=== PATIENT | male | born 1955 | race Caucasian/White ===

== ENCOUNTER 2016-07-26 08:12 | Inpatient (IN) | payer MEDICARE, OTHER ==
[~2016-07-26] VITALS: Ht 177.8 cm; Wt 77.1 kg
[2016-07-26 08:28] VITALS: BP 185/102
[2016-07-26] MEDS ORDERED: HYDROmorphone 1mg/ml Carpuject IVP ONE (08:45)
[2016-07-26] MEDS ORDERED: DiphenhydrAMINE 50mg/ml Inj IVP ONE (08:45)
--- NOTE | 2016-07-26 08:47 | Emergency Room Report ---
History of Present Illness General Chief Complaint: Abdominal Pain Source: Patient Present Illness HPI Patient present with complaints of diffuse abdominal pain He feels it initially was on the umbilical region now it has gone up into the epigastric region Reports several episodes of vomiting denies any diarrhea He does report chills denies any obvious documented fevers denies any back or flank pain Patient appears very uncomfortable upon arrival Denies any other fall or trauma denies any recent abdominal procedures and denies previous surgical procedures Allergies: Coded Allergies: No Known Allergies (Verified , 08/13/06) Patient History Past Medical History: see triage record Pertinent Family History: none Reviewed Nursing Documentation: PMH: Agreed, PSxH: Agreed Nursing Documentation-PMH Hx Cardiac Problems: No Hx Hypertension: No Hx Pacemaker: No Hx Asthma: No Hx COPD: No Hx Diabetes: No Hx Cancer: No Hx Gastrointestinal Problems: No Hx Dialysis: No Hx Neurological Problems: Yes - hiv Hx Cerebrovascular Accident: No Hx Seizures: No Review of Systems All Other Systems: negative except mentioned in HPI Physical Exam Vital Signs Date Time Temp Pulse Resp B/P Pulse Ox O2 Delivery O2 Flow Rate FiO2 07/26/16 08:07 97.9 66 18 165/110 98 Room Air Sp02 EP Interpretation: reviewed, normal General Appearance: moderate distress - Appears in acute pain Head: normocephalic, atraumatic Eyes: bilateral eye EOMI, bilateral eye PERRL ENT: hearing grossly normal, normal pharynx, TMs + canals normal, uvula midline Neck: full range of motion, supple, no meningismus, no bony tend Respiratory: lungs clear, normal breath sounds, no rhonchi, no respiratory distress, no retraction, no accessory muscle use Cardiovascular #1: normal peripheral pulses, regular rate, rhythm, no edema, no gallop, no JVD, no murmur Gastrointestinal: normal bowel sounds, non tender, soft, no organomegaly, non- distended, no guarding, no pulsatile mass, no rebound, other - Patient is tender in the epigastric area, there is a small umbilical hernia which is easily reducible Genitourinary: no CVA tenderness Musculoskeletal: normal inspection Neurologic: oriented x3, responsive, materials management supervisor III-XII nml as tested, motor strength/ tone normal, sensory intact Psychiatric: mood/affect normal Skin: normal color, no rash, warm/dry, palpation normal Lymphatic: normal inspection, no adenopathy Medical Decision Making Diagnostic Impression: Primary Impression: Intractable abdominal pain Additional Impression: SBO (small bowel obstruction) ER Course Given the patient's history examined the presentation Multiple differentials are considered Patient is complex requiring blood work and imaging study Patient's imaging study reveals evidence of enteritis was also a question of possible small bowel junction Patient require further admission initially refusing NG tube placement General surgery was consulted , Labs Test 07/26/16 08:20 07/26/16 09:25 07/26/16 12:50 White Blood Count 12.8 K/UL (4.8-10.8) Red Blood Count 5.25 M/UL (4.70-6.10) Hemoglobin 16.3 G/DL (14.2-18.0) Hematocrit 48.2 % (42.0-52.0) Mean Corpuscular Volume 92 FL (80-99) Mean Corpuscular Hemoglobin 31.1 PG (27.0-31.0) Mean Corpuscular Hemoglobin Concent 33.9 G/DL (32.0-36.0) Red Cell Distribution Width 12.8 % (11.6-14.8) Platelet Count 230 K/UL (150-450) Mean Platelet Volume 7.4 FL (6.5-10.1) Neutrophils (%) (Auto) 79.6 % (45.0-75.0) Lymphocytes (%) (Auto) 15.9 % (20.0-45.0) Monocytes (%) (Auto) 3.5 % (1.0-10.0) Eosinophils (%) (Auto) 0.4 % (0.0-3.0) Basophils (%) (Auto) 0.6 % (0.0-2.0) Prothrombin Time 10.0 SEC (9.30-11.50) Prothromb Time International Ratio 1.0 (0.9-1.1) Activated Partial Thromboplast Time 26 SEC (23-33) Sodium Level 144 mEQ/L (135-145) 145 mEQ/L (135-145) Potassium Level 4.4 mEQ/L (3.4-4.9) 4.3 mEQ/L (3.4-4.9) Chloride Level 100 mEQ/L (98-107) 103 mEQ/L (98-107) Carbon Dioxide Level 28 mEQ/L (20-30) 30 mEQ/L (20-30) Anion Gap 16 (5-15) 12 (5-15) Blood Urea Nitrogen 16 mg/dL (7-23) 15 mg/dL (7-23) Creatinine 1.1 mg/dL (0.7-1.2) 1.1 mg/dL (0.7-1.2) Estimat Glomerular Filtration Rate > 60 mL/min (>60) > 60 mL/min (>60) Glucose Level 142 mg/dL (74-106) 118 mg/dL (74-106) Calcium Level 10.4 mg/dL (8.6-10.2) 9.7 mg/dL (8.6-10.2) Total Bilirubin 0.5 mg/dL (0.0-1.2) Aspartate Amino Transf (AST/SGOT) 28 U/L (5-40) Alanine Aminotransferase (ALT/SGPT) 16 U/L (3-41) Alkaline Phosphatase 87 U/L (40-129) Total Protein 7.9 g/dL (6.6-8.7) Albumin 4.1 g/dL (3.5-5.2) Globulin 3.8 g/dL Albumin/Globulin Ratio 1.0 (1.0-2.7) Lipase 34 U/L (< 60) Urine Color Pale yellow Urine Appearance Slightly cloudy Urine pH 9 (4.5-8.0) Urine Specific [place] 1.015 (1.005-1.035) Urine Protein Negative (NEGATIVE) Urine Glucose (UA) Negative (NEGATIVE) Urine Ketones 1+ (NEGATIVE) Urine Occult Blood Negative (NEGATIVE) Urine Nitrite Negative (NEGATIVE) Urine Bilirubin Negative (NEGATIVE) Urine Urobilinogen Normal MG/DL (0.0-1.0) Urine Leukocyte Esterase Negative (NEGATIVE) EKG Diagnostic Results Rate: normal Rhythm: NSR ST Segments: no acute changes Rhythm Strip Diag. Results EP Interpretation: yes Rate: 66 Rhythm: NSR, no PVC's, no ectopy CT/MRI/US Diagnostic Results CT/MRI/US Diagnostic Results : Impression CT abdomen pelvisImpression: Suspicion of partial mechanical small bowel obstruction versus enteritis. Apparent transition probably present in the right lower quadrant within distal small bowel. 4 cm low-attenuation mass projecting off of the stomach consistent with a diverticulum of the stomach. The attenuation of this diverticulum is concerning and suggests a presence of an underlying mass such as a polyp or mural based tumor. Direct visualization with endoscopy is recommended. Cluster, densely calcified nodules at the left lung base. Nodules are present in 2010 minus the calcifications and suggests postinflammatory or postinfectious etiology. Atherosclerotic vascular disease. Trace ascites. Compression fracture deformities of L2 and L3 vertebra likely old. Umbilical hernia containing fat. Attenuation of this fat suggests inflammation. Incarceration cannot be evaluated by imaging and requires clinical correlation. Last Vital Signs Date Time Temp Pulse Resp B/P Pulse Ox O2 Delivery O2 Flow Rate FiO2 07/26/16 08:28 67 28 185/102 100 Room Air 07/26/16 08:07 97.9 Status: improved Disposition: ADMITTED INPATIENT Condition: Serious DANNY MCKEON D.O. Jul 26, 2016 08:47
[2016-07-26 08:55] LABS: BASOPHILS % (AUTO) 0.6 % (0.0-2.0); EOSINOPHILS % (AUTO) 0.4 % (0.0-3.0); LYMPHOCYTES % (AUTO) 15.9 % (20.0-45.0); MEAN CORPUSCULAR HEMOGLOBIN 31.1 PG (27.0-31.0); MEAN CORPUSCULAR HGB CONC 33.9 G/DL (32.0-36.0); MEAN CORPUSCULAR VOLUME 92 FL (80-99); MEAN PLATELET VOLUME 7.4 FL (6.5-10.1); MONOCYTES % (AUTO) 3.5 % (1.0-10.0); NEUTROPHILS % (AUTO) 79.6 % (45.0-75.0); PLATELET COUNT 230 K/UL (150-450); RED BLOOD COUNT 5.25 M/UL (4.70-6.10); RED CELL DISTRIBUTION WIDTH 12.8 % (11.6-14.8); WHITE BLOOD COUNT 12.8 K/UL (4.8-10.8)
[2016-07-26 09:10] LABS: ALANINE AMINOTRANSFERASE 16 U/L (3-41); ANION GAP 16 (5-15); ASPARTATE AMINO TRANSFERASE 28 U/L (5-40); CALCIUM 10.4 mg/dL (8.6-10.2); CARBON DIOXIDE 28 mEQ/L (20-30); CHLORIDE 100 mEQ/L (98-107); CREATININE 1.1 mg/dL (0.7-1.2); GLOMERULAR FILTRATION RATE > 60 mL/min (>60); HEMOLYSIS 29; LIPASE 34 U/L (< 60); POTASSIUM 4.4 mEQ/L (3.4-4.9); SODIUM 144 mEQ/L (135-145); TOTAL PROTEIN 7.9 g/dL (6.6-8.7)
[2016-07-26 09:17] VITALS: BP 139/77
[2016-07-26] MEDS ORDERED: TIVICAY50 MG ORAL (09:41)
[2016-07-26] MEDS ORDERED: BACTRIM DS TAB1 EAC1 ORAL (09:45)
[2016-07-26] MEDS ORDERED: NAPROXEN375 M2 ORAL (09:45)
[2016-07-26] MEDS ORDERED: DOCUSIL100 M1 ORAL (09:45)
[2016-07-26 10:05] LABS: APPEARANCE,URINE SLIGHTLY CLOUDY; KETONES,URINE 1+ (NEGATIVE); LEUKOCYTE ESTERASE ,URINE NEGATIVE (NEGATIVE); NITRITE,URINE NEGATIVE (NEGATIVE); PH,URINE 9 (4.5-8.0); PROTEIN,URINE NEGATIVE (NEGATIVE); UROBILINOGEN,URINE NORMAL MG/DL (0.0-1.0)
--- NOTE | 2016-07-26 10:37 | Diagnostic Imaging Report ---
Indication: Abdominal pain Technique: Continuous helical transaxial imaging of the abdomen and pelvis was obtained from the lung bases to the pubic symphysis during intravenous contrast administration. Coronal 2-D reformats were also obtained. Study obtained in a Siemens sensation [address] Total Dose length Product (DLP): [address] Dose Index Volume (CTDIvol): 18 mGy Comparison: CT chest 07/10/10, CT chest abdomen pelvis 04/29/10 Findings: There are densely calcified nodules clustered at the left lung base. Noncalcified nodules were noted on the previous studies in 2009 and 2010 in the same configuration and pattern but have changed in the sense that these structures are now calcified. The findings are undoubtedly postinflammatory/infectious in etiology. Calcifications are probably dystrophic in nature. Stomach is fluid-filled and distended. There are also moderately distended loops of small bowel. The findings could be due to ileus or enteritis. There is some evidence to suggest a mechanical bowel obstruction in the right lower quadrant as there are several loops of nondistended terminal ileum present. Please correlate clinically. If the findings are due to a mechanical obstruction, the obstruction may be partial given that the small bowel dilatation is not severe. There is a small amount of associated mural thickening and perienteric fluid. Trace ascites is noted. In the right upper quadrant of the abdomen there is a low-attenuation mass that appears to be associated with the antrum of the stomach. The mass is exophytic to the stomach. Considerations include an exophytic, antral mucosal diverticulum. The attenuation of this structure is slightly higher than that of the contents in the stomach suggesting there is either a mass within this diverticulum such as a polyp or other mural based mass. Highly recommend EGD for evaluation. The mass has a measurement of about 4 cm and is seen (for example on images 20-26, series 5) and also (image 20-25, series 3). None of these findings seen in 2010. Bilateral renal cysts are present. There is no adrenal mass. Pancreas is unremarkable. The gallbladder is unremarkable. There is umbilical hernia containing fat measuring approximately 4 cm. Moderate stool retention demonstrated. The L2 and L3 vertebral bodies show superior endplate compression fracture deformities, probably old. Impression: Suspicion of partial mechanical small bowel obstruction versus enteritis. Apparent transition probably present in the right lower quadrant within distal small bowel. 4 cm low-attenuation mass projecting off of the stomach consistent with a diverticulum of the stomach. The attenuation of this diverticulum is concerning and suggests a presence of an underlying mass such as a polyp or mural based tumor. Direct visualization with endoscopy is recommended. Cluster, densely calcified nodules at the left lung base. Nodules are present in 2010 minus the calcifications and suggests postinflammatory or postinfectious etiology. Atherosclerotic vascular disease. Trace ascites. Compression fracture deformities of L2 and L3 vertebra likely old. Umbilical hernia containing fat. Attenuation of this fat suggests inflammation. Incarceration cannot be evaluated by imaging and requires clinical correlation. Bilateral renal cysts The CT scanner at [facility] is accredited by the [employer] and the scans are performed using protocols designed to limit radiation exposure to as low as reasonably achievable to attain images of sufficient resolution adequate for diagnostic evaluation.
[2016-07-26 11:42] VITALS: BP 150/91
--- NOTE | 2016-07-26 12:34 | General Surgery Progress Note ---
General Surgery-Progress Note Subjective Reason for Consult abdominal pain, nausea and emesis, distention Additional Comments 24-36 hrs increasing abdominal pain all over, no localization, nl BM yesterday, nausea, emesis of bilous material and food, no fever. Similar milder episode 1 week ago. No hx prior abdominal surgery Objective Last 24 Hour Vital Signs Date Time Temp Pulse Resp B/P Pulse Ox O2 Delivery O2 Flow Rate FiO2 07/26/16 11:57 97.8 69 16 150/91 100 Room Air 07/26/16 11:42 69 16 150/91 100 Room Air 07/26/16 09:17 79 19 139/77 97 Room Air 07/26/16 09:16 97.8 07/26/16 08:28 67 28 185/102 100 Room Air 07/26/16 08:07 97.9 66 18 165/110 98 Room Air Cardiovascular: RSR Respiratory: clear Abdomen: distended - 1-2+, soft, 1 + tender Extremities: no edema Laboratory Tests Test 07/26/16 08:20 07/26/16 09:25 White Blood Count 12.8 K/UL (4.8-10.8) H Red Blood Count 5.25 M/UL (4.70-6.10) Hemoglobin 16.3 G/DL (14.2-18.0) Hematocrit 48.2 % (42.0-52.0) Mean Corpuscular Volume 92 FL (80-99) Mean Corpuscular Hemoglobin 31.1 PG (27.0-31.0) H Mean Corpuscular Hemoglobin Concent 33.9 G/DL (32.0-36.0) Red Cell Distribution Width 12.8 % (11.6-14.8) Platelet Count 230 K/UL (150-450) Mean Platelet Volume 7.4 FL (6.5-10.1) Neutrophils (%) (Auto) 79.6 % (45.0-75.0) H Lymphocytes (%) (Auto) 15.9 % (20.0-45.0) L Monocytes (%) (Auto) 3.5 % (1.0-10.0) Eosinophils (%) (Auto) 0.4 % (0.0-3.0) Basophils (%) (Auto) 0.6 % (0.0-2.0) Prothrombin Time 10.0 SEC (9.30-11.50) Prothromb Time International Ratio 1.0 (0.9-1.1) Activated Partial Thromboplast Time 26 SEC (23-33) Sodium Level 144 mEQ/L (135-145) Potassium Level 4.4 mEQ/L (3.4-4.9) Chloride Level 100 mEQ/L (98-107) Carbon Dioxide Level 28 mEQ/L (20-30) Anion Gap 16 (5-15) H Blood Urea Nitrogen 16 mg/dL (7-23) Creatinine 1.1 mg/dL (0.7-1.2) Estimat Glomerular Filtration Rate > 60 mL/min (>60) Glucose Level 142 mg/dL (74-106) H Calcium Level 10.4 mg/dL (8.6-10.2) H Total Bilirubin 0.5 mg/dL (0.0-1.2) Aspartate Amino Transf (AST/SGOT) 28 U/L (5-40) Alanine Aminotransferase (ALT/SGPT) 16 U/L (3-41) Alkaline Phosphatase 87 U/L (40-129) Total Protein 7.9 g/dL (6.6-8.7) Albumin 4.1 g/dL (3.5-5.2) Globulin 3.8 g/dL Albumin/Globulin Ratio 1.0 (1.0-2.7) Lipase 34 U/L (< 60) Urine Color Pale yellow Urine Appearance Slightly cloudy Urine pH 9 (4.5-8.0) Urine Specific [place] 1.015 (1.005-1.035) Urine Protein Negative (NEGATIVE) Urine Glucose (UA) Negative (NEGATIVE) Urine Ketones 1+ (NEGATIVE) H Urine Occult Blood Negative (NEGATIVE) Urine Nitrite Negative (NEGATIVE) Urine Bilirubin Negative (NEGATIVE) Urine Urobilinogen Normal MG/DL (0.0-1.0) Urine Leukocyte Esterase Negative (NEGATIVE) Imaging CAT scan: Distended stomach and multiple loops of small bowel to distal ileum, ileus vs SBO. No obvious masses. Reducible umbilical hernia , no incarceration on CT . Additional Comments Ileus secondary to viral syndrome, other GI infection vs early SBO, ? cause, r/ o Meckel's diverticulitis, mass, etc Assessment Additional Comments NG tube, hydration repeat abdominal xrays and exam. ANISA JIN Jul 26, 2016 12:34
[2016-07-26 12:50] VITALS: BP 163/118
--- NOTE | 2016-07-26 13:33 | History and Physical ---
History of Present Illness General Date patient seen: Jul 26, 2016 Time patient seen: 13:00 Reason for Hospitalization: Abdominal Pain Present Illness HPI 61 y/old male presented with complaints of diffuse abdominal pain Initially was in the umbilical region but later moved up into the epigastric region normal BM yesterday, +nausea, + emesis of bilious material and food, denies diarrhea no hematemesis no fevera, no chills . Similar milder episode 1 week ago. No hx prior abdominal surgery Workup n ED revealed mild leukocytosis, no anemia VS with evidence of HTN urgency patient was admitted fro further management CT A/P with Suspicion of partial mechanical small bowel obstruction versus enteritis. Allergies: Coded Allergies: No Known Allergies (Verified , 08/13/06) Medication History Scheduled Docusate Sodium* (Docusil*), Unknown Dose ORAL DAILY, (Reported) Dolutegravir Sodium (Tivicay), Unknown Dose ORAL DAILY, (Reported) Naproxen* (Naproxen*), Unknown Dose ORAL TWICE A DAY, (Reported) Trimethoprim/Sulfamethoxazole 160/800* (Bactrim Ds Tablet*), Unknown Dose ORAL DAILY, (Reported) Patient History History Provided By: Patient Healthcare decision maker Resuscitation status Advanced Directive on File No Past Medical/Surgical History Past Medical/Surgical History: (1) HIV (human immunodeficiency virus infection) (2) Anemia (3) GERD (gastroesophageal reflux disease) (4) HTN (hypertension) (5) Meningitis (6) HIV (human immunodeficiency virus infection) Review of Systems Constitutional: Reports: weakness Eye: Reports: nose congestion ENT: Reports: no symptoms Respiratory: Reports: no symptoms Cardiovascular: Reports: other - HTN Gastrointestinal: Reports: see HPI Genitourinary: Reports: no symptoms Musculoskeletal: Reports: back pain, joint pain, muscle pain Skin: Reports: no symptoms Psychiatric: Reports: no symptoms Neurological: Reports: no symptoms Endocrine: Reports: no symptoms Hematologic/Lymphatic: Reports: anemia, other - HIV sttaus Physical Exam General Appearance: no apparent distress, alert Lines, tubes and drains: peripheral HEENT: anicteric Neck: non-tender, supple, normal inspection Respiratory/Chest: chest wall non-tender, no respiratory distress, no accessory muscle use Cardiovascular/Chest: normal peripheral pulses, normal rate, regular rhythm, no JVD Abdomen: soft, other - epigastric tenderness, small ventral hernia, easily reducible Extremities: normal range of motion, non-tender, no calf tenderness, normal capillary refill Skin Exam: warm/dry Neurologic: no motor/sensory deficits, alert, oriented x 3, responsive Musculoskeletal: normal muscle bulk Last 24 Hour Vital Signs Date Time Temp Pulse Resp B/P Pulse Ox O2 Delivery O2 Flow Rate FiO2 07/26/16 12:50 97.2 72 16 163/118 99 Room Air 07/26/16 11:57 97.8 69 16 150/91 100 Room Air 07/26/16 11:42 69 16 150/91 100 Room Air 07/26/16 09:17 79 19 139/77 97 Room Air 07/26/16 09:16 97.8 07/26/16 08:28 67 28 185/102 100 Room Air 07/26/16 08:07 97.9 66 18 165/110 98 Room Air Laboratory Tests Test 07/26/16 08:20 07/26/16 09:25 07/26/16 12:50 White Blood Count 12.8 K/UL (4.8-10.8) H Red Blood Count 5.25 M/UL (4.70-6.10) Hemoglobin 16.3 G/DL (14.2-18.0) Hematocrit 48.2 % (42.0-52.0) Mean Corpuscular Volume 92 FL (80-99) Mean Corpuscular Hemoglobin 31.1 PG (27.0-31.0) H Mean Corpuscular Hemoglobin Concent 33.9 G/DL (32.0-36.0) Red Cell Distribution Width 12.8 % (11.6-14.8) Platelet Count 230 K/UL (150-450) Mean Platelet Volume 7.4 FL (6.5-10.1) Neutrophils (%) (Auto) 79.6 % (45.0-75.0) H Lymphocytes (%) (Auto) 15.9 % (20.0-45.0) L Monocytes (%) (Auto) 3.5 % (1.0-10.0) Eosinophils (%) (Auto) 0.4 % (0.0-3.0) Basophils (%) (Auto) 0.6 % (0.0-2.0) Prothrombin Time 10.0 SEC (9.30-11.50) Prothromb Time International Ratio 1.0 (0.9-1.1) Activated Partial Thromboplast Time 26 SEC (23-33) Sodium Level 144 mEQ/L (135-145) Pending Potassium Level 4.4 mEQ/L (3.4-4.9) Pending Chloride Level 100 mEQ/L (98-107) Pending Carbon Dioxide Level 28 mEQ/L (20-30) Pending Anion Gap 16 (5-15) H Blood Urea Nitrogen 16 mg/dL (7-23) Pending Creatinine 1.1 mg/dL (0.7-1.2) Pending Estimat Glomerular Filtration Rate > 60 mL/min (>60) Pending Glucose Level 142 mg/dL (74-106) H Pending Calcium Level 10.4 mg/dL (8.6-10.2) H Pending Total Bilirubin 0.5 mg/dL (0.0-1.2) Aspartate Amino Transf (AST/SGOT) 28 U/L (5-40) Alanine Aminotransferase (ALT/SGPT) 16 U/L (3-41) Alkaline Phosphatase 87 U/L (40-129) Total Protein 7.9 g/dL (6.6-8.7) Albumin 4.1 g/dL (3.5-5.2) Globulin 3.8 g/dL Albumin/Globulin Ratio 1.0 (1.0-2.7) Lipase 34 U/L (< 60) Urine Color Pale yellow Urine Appearance Slightly cloudy Urine pH 9 (4.5-8.0) Urine Specific [place] 1.015 (1.005-1.035) Urine Protein Negative (NEGATIVE) Urine Glucose (UA) Negative (NEGATIVE) Urine Ketones 1+ (NEGATIVE) H Urine Occult Blood Negative (NEGATIVE) Urine Nitrite Negative (NEGATIVE) Urine Bilirubin Negative (NEGATIVE) Urine Urobilinogen Normal MG/DL (0.0-1.0) Urine Leukocyte Esterase Negative (NEGATIVE) Height (Feet): 5 Height (Inches): 10.00 Weight (Pounds): 160 Medications Current Medications Medications (Trade) Dose Ordered Sig/Sam Route PRN Reason Start Time Stop Time Status Last Admin Dose Admin Dextrose/Sodium Chloride (D5 0.45% NS) 1,000 ml @ 100 mls/hr Q10H IV 07/26/16 13:30 08/25/16 13:29 Heparin Sodium (Porcine) (Heparin 5000 units/ml) 5,000 units EVERY 12 HOURS SUBQ 07/26/16 21:00 08/25/16 20:59 Morphine Sulfate (Morphine Sulfate) 2 mg Q4H PRN IV PAIN 4-10 07/26/16 13:00 08/02/16 12:59 Ondansetron HCl (Zofran) 4 mg Q6H PRN IVP Nausea & Vomiting 07/26/16 13:00 08/25/16 12:59 Assessment/Plan Assessment/Plan ASSESSMENT partial SBO vs enteritis HTN urgency HIV status anemia GERD PLAN OF CARE NPO IVF surgery consult bowel decompression antiemetic prn BP management T cell subsets DVT, GI prophylaxis Pain management monitor HH, transfuse prn case discussed and evaluated by supervising physician Bri Adames NP ([place]) Jul 26, 2016 13:33
[2016-07-26 13:34] LABS: ANION GAP 12 (5-15); CALCIUM 9.7 mg/dL (8.6-10.2); CARBON DIOXIDE 30 mEQ/L (20-30); CHLORIDE 103 mEQ/L (98-107); CREATININE 1.1 mg/dL (0.7-1.2); GLOMERULAR FILTRATION RATE > 60 mL/min (>60); HEMOLYSIS 4; POTASSIUM 4.3 mEQ/L (3.4-4.9); SODIUM 145 mEQ/L (135-145)
[2016-07-26] MEDS: D5 1/2NS 1,000 ML IV SCH ×2 (14:32→22:57)
[2016-07-26] MEDS: Morphine Sulfate 2mg/ml Inj IV PRN ×2 (14:34→19:27)
[2016-07-26 16:27] VITALS: BP 157/102
[2016-07-26 20:00] VITALS: BP 163/122
[2016-07-26] MEDS ORDERED: D5 1/2NS 1000ml IV ONE (20:45)
[2016-07-26] MEDS: Heparin 5000 units/ml inj SUBQ SCH (21:29)
[2016-07-27] VITALS: BP 148/79
[2016-07-27] MEDS: Morphine Sulfate 2mg/ml Inj IV PRN ×4 (02:55→19:34)
[2016-07-27 04:00] VITALS: BP 140/94
[2016-07-27 07:23] LABS: BASOPHILS % (AUTO) 0.9 % (0.0-2.0); LYMPHOCYTES % (AUTO) 26.5 % (20.0-45.0); MEAN CORPUSCULAR HEMOGLOBIN 30.8 PG (27.0-31.0); MEAN CORPUSCULAR HGB CONC 32.8 G/DL (32.0-36.0); MEAN CORPUSCULAR VOLUME 94 FL (80-99); MEAN PLATELET VOLUME 7.7 FL (6.5-10.1); MONOCYTES % (AUTO) 9.6 % (1.0-10.0); NEUTROPHILS % (AUTO) 61.1 % (45.0-75.0); PLATELET COUNT 202 K/UL (150-450); RED BLOOD COUNT 4.52 M/UL (4.70-6.10); WHITE BLOOD COUNT 6.7 K/UL (4.8-10.8)
[2016-07-27 08:03] LABS: ALBUMIN/GLOBULIN RATIO 1.1 (1.0-2.7); CALCIUM 9.6 mg/dL (8.6-10.2); CREATININE 1.3 mg/dL (0.7-1.2); GLOMERULAR FILTRATION RATE 55.9 mL/min (>60); POTASSIUM 4.5 mEQ/L (3.4-4.9); TOTAL PROTEIN 6.9 g/dL (6.6-8.7)
[2016-07-27] MEDS: Heparin 5000 units/ml inj SUBQ SCH ×2 (08:30→21:00)
[2016-07-27] MEDS: D5 1/2NS 1,000 ML IV SCH ×2 (08:31→19:33)
[2016-07-27 08:42] VITALS: BP 149/102
--- NOTE | 2016-07-27 11:22 | Consultation ---
Consult Note Consult Note ID CONSULT: Mare# [id number] Assessment/Plan ASSESSMENT: 61 y/o male with: // HIV / AIDS, on cART ( [facility] ) - CD4 >400, VL undetectable per self report // Leukocytosis, mild - resolved, afebrile // Partial SBO vs vs ileus vs enteritis - surgery following - CT A/P: moderately distended loops of small bowel. The findings could be due to ileus or enteritis. There is some evidence to suggest a mechanical bowel obstruction in the right lower quadrant as there are several loops of nondistended terminal ileum present. // Stomach lesion r/o malignancy - CT A/P: low-attenuation mass that appears to be associated with the antrum of the stomach. The mass is exophytic to the stomach. // MAYELA - Cr 1.1-->1.3 // h/o cryptococcal meningitis/cryptococcemia, rickettsia, HBV ( spontaneous clearance ), syphillis SP Rx // Negative: toxoplasma, histoplasma, cryptosporidium // NKDA // Full Code PLAN: - monitor pt off of ABX - resume cART, bactrim when taking PO, f/u regular HIV provider at discharge - surgery following - consider GI eval for EGD visualize stomach lesion - monitor CBC, temperatures, [place]-culture if acute change - monitor BMP Thanks! Will follow TISHA CURTIS Jul 27, 2016 11:22
[2016-07-27 11:57] VITALS: BP 131/86
--- NOTE | 2016-07-27 12:18 | General Progress Note ---
Progress Note Progress Note Afebrile, less pain, NG 800 cc sl bilous and some coffee ground. Abdomen: soft, BS normal, less distention, less tender ( mostly upper abdomen), no RLQ mass or significant tenderness WBC 6.700, Xrays: pending this am. Impression: abdominal pain, N/V, tenderness, leukocytosis and initial picture of SBO. Will check today's xrays and order UGI with with SBFT for tomorrow am. Continue NG for now. ANISA JIN Jul 27, 2016 12:18
--- NOTE | 2016-07-27 16:24 | Pulmonology Progress Note ---
Assessment/Plan Assessment/Plan ASSESSMENT partial SBO vs enteritis stomach lesion, r/o malignancy HTN urgency HIV status anemia GERD acute kidney injury PLAN OF CARE NPO bowel decompression with NGT to suction - -800 cc bilious some coffee ground material n IVF surgery follows KUB today CT A/P also with evidence of stomach mass get GI eval for EGD for evaluation of mass antiemetic prn BP management T cell subsets DVT, GI prophylaxis Pain management monitor HH, transfuse prn monitor renal parameters, lytes case discussed and evaluated by supervising physician ' Subjective Allergies: Coded Allergies: No Known Allergies (Verified , 08/13/06) Subjective afebrile, leukocytosis resolved complained of epigastric pain seen by surgery and ID full report of CT available with evidence of stomach lesion Objective Last 24 Hour Vital Signs Date Time Temp Pulse Resp B/P Pulse Ox O2 Delivery O2 Flow Rate FiO2 07/27/16 14:11 156/101 07/27/16 11:57 98.6 76 15 131/86 96 Room Air 07/27/16 08:42 97.2 77 18 149/102 92 Room Air 07/27/16 06:19 140/94 07/27/16 04:00 96.4 76 18 140/94 100 Room Air 07/27/16 00:00 97.0 82 19 148/79 97 Room Air 07/26/16 21:28 157/99 07/26/16 20:00 97.3 84 18 163/122 96 Room Air 07/26/16 18:05 157/102 07/26/16 16:27 97.7 85 14 157/102 96 Intake and Output 07/26/16 07/27/16 19:00 07:00 Intake Total 1000 ml 1100 ml Output Total 125 ml 1200 ml Balance 875 ml -100 ml Intake Oral 0 ml IV Total 1000 ml 1100 ml Output Urine Total 125 ml 400 ml Other 800 ml Objective General Appearance: no apparent distress, awake, alert Lines, tubes and drains: peripheral HEENT: anicteric, NGT to suction Neck: non-tender, supple, normal inspection Respiratory/Chest: chest wall non-tender, no respiratory distress, no accessory muscle use Cardiovascular/Chest: normal peripheral pulses, normal rate, regular rhythm, no JVD Abdomen: soft, other - epigastric tenderness, small ventral hernia, easily reducible Extremities: normal range of motion, non-tender, no calf tenderness, normal capillary refill Skin Exam: warm/dry Neurologic: no motor/sensory deficits, alert, oriented x 3, responsive Musculoskeletal: normal muscle bulk Laboratory Tests 07/26/16 17:00: White Blood Count [Pending], Lymphocytes [Pending], Percent CD3 Cells [Pending] , Absolute CD3 Count [Pending], Percent CD4 Cells [Pending], Absolute CD4 Count [Pending], T-Lymphocyte CD4/CD8 Ratio [Pending], Percent CD8 Cells [Pending], Absolute CD8 Count [Pending] 07/27/16 05:40: White Blood Count 6.7, Red Blood Count 4.52L, Hemoglobin 13.9L, Hematocrit 42.5 , Mean Corpuscular Volume 94, Mean Corpuscular Hemoglobin 30.8, Mean Corpuscular Hemoglobin Concent 32.8, Red Cell Distribution Width 13.0, Platelet Count 202, Mean Platelet Volume 7.7, Neutrophils (%) (Auto) 61.1, Lymphocytes (% ) (Auto) 26.5, Monocytes (%) (Auto) 9.6, Eosinophils (%) (Auto) 2.0, Basophils ( %) (Auto) 0.9, Sodium Level 144, Potassium Level 4.5, Chloride Level 103, Carbon Dioxide Level 31H, Anion Gap 10, Blood Urea Nitrogen 16, Creatinine 1.3H , Estimat Glomerular Filtration Rate 55.9, Glucose Level 114H, Calcium Level 9.6 , Total Bilirubin 0.3, Aspartate Amino Transf (AST/SGOT) 21, Alanine Aminotransferase (ALT/SGPT) 12, Alkaline Phosphatase 76, Total Protein 6.9, Albumin 3.7, Globulin 3.2, Albumin/Globulin Ratio 1.1 Current Medications Medications (Trade) Dose Ordered Sig/Sam Route PRN Reason Start Time Stop Time Status Last Admin Dose Admin Clonidine HCl (Catapres) 0.1 mg EVERY 8 HOURS ORAL 07/26/16 16:00 08/25/16 15:59 07/27/16 14:11 Dextrose/Sodium Chloride (D5 0.45% NS) 1,000 ml @ 100 mls/hr Q10H IV 07/26/16 13:30 08/25/16 13:29 07/27/16 08:31 Heparin Sodium (Porcine) (Heparin 5000 units/ml) 5,000 units EVERY 12 HOURS SUBQ 07/26/16 21:00 08/25/16 20:59 07/27/16 08:30 Hydralazine HCl (Apresoline) 10 mg Q4H PRN IV For High Blood Pressure 07/26/16 23:15 08/25/16 23:14 Morphine Sulfate (Morphine Sulfate) 2 mg Q4H PRN IV PAIN 4-10 07/26/16 13:00 08/02/16 12:59 07/27/16 14:12 Ondansetron HCl (Zofran) 4 mg Q6H PRN IVP Nausea & Vomiting 07/26/16 13:00 08/25/16 12:59 07/26/16 14:35 Pneumococcal Polyvalent Vaccine (Pneumovax) 0.5 ml ONCE ONCE IM 07/27/16 17:30 07/27/16 17:31 Ranitidine HCl (Zantac) 150 mg BEDTIME ORAL 07/26/16 21:00 08/25/16 20:59 07/26/16 21:27 Keith CedenoMisericordia HospitalBri Desai NP Jul 27, 2016 16:24
[2016-07-27 16:35] VITALS: BP 136/89
[2016-07-27] MEDS ORDERED: Pneumococcal Vaccine 25mcg/0.5ml IM ONE (17:30)
[2016-07-27 20:00] VITALS: BP 134/94
--- NOTE | 2016-07-27 21:58 | Consultation ---
DATE OF CONSULTATION: 07/27/2016 INFECTIOUS DISEASE CONSULTATION REQUESTING PHYSICIAN: Jasmina Diego M.D. REASON FOR CONSULTATION: Human immunodeficiency virus. HISTORY OF PRESENT ILLNESS: This is a 61-year-old male with a history of HIV/AIDS with a CD4 count of more than 400 and virologically undetectable on combination intractable bowel therapy admitted on 07/26/2016 with abdominal [address]. A [address] of the abdomen and pelvis shows moderately distended loops of small bowel that may be due to ileus or enteritis and possible partial obstruction. Also, noted low attenuation mass that appears to be associated with the antrum of the stomach, this is exophytic. Associated mild leukocytosis, now resolved and afebrile as well as acute renal insufficiency. The patient has been seen by surgery and is being managed conservatively with nasogastric tube to low intermittent suction. No cultures have been sent and he is not receiving any antimicrobial therapy. ID now consulted to assist in management. PAST MEDICAL HISTORY: HIV/AIDS, on Descovy and Tivicay with a CD4 count of more than 400 and virologically undetectable per self report. PAST SURGICAL HISTORY: None. FAMILY HISTORY: Mother and sister both of cancer. SOCIAL HISTORY: Denies tobacco, alcohol, or illicit drug abuse. ALLERGIES: No known drug allergies. MEDICATIONS: 1. No antibiotics. 2. Subcutaneous heparin. 3. Zantac. 4. Clonidine. REVIEW OF SYSTEMS: As per history of present illness. Ten systems reviewed, all pertinent positives and negatives noted. PHYSICAL EXAMINATION: VITAL SIGNS: Maximum temperature 97.8, blood pressure 149/102, heart rate 77, respiratory rate 18, and saturating 92% on room air. GENERAL: No apparent distress. Nontoxic appearing. CARDIOVASCULAR: Regular rate and rhythm. No murmurs. PULMONARY: Clear to auscultation bilaterally. ABDOMINAL EXAM: Bowel sounds present. Soft. Mild distention and epigastric tenderness. EXTREMITIES: No edema. SKIN EXAM: No rash. LABORATORY DATA: White blood cell count 6.7, decreased from 12.8, hemoglobin 13.9, and platelets 202,000. Sodium 141, potassium 4.5, chloride 103, bicarbonate 31, BUN 16, and creatinine 1.3, increased from 1.1. The lipase and liver function tests within normal limits. Urinalysis negative. CD4 count pending. MICROBIOLOGY: None. IMAGIN07/26/2016 CT abdomen and pelvis with moderately distended loops of small bowel may be ileus enteritis or partial small-bowel obstruction. Low-attenuation mass that appears to be associated with the antrum of the stomach and is exophytic. Please refer to full report for full details. ASSESSMENT: 1. Human immunodeficiency virus/acquired immune deficiency syndrome, on combination antiretroviral therapy with Descovy and Tivicay and a CD4 count of more than 400 and virologically undetectable per self report. 2. Leukocytosis, mild now resolved and afebrile. 3. Partial small-bowel obstruction versus enteritis versus ileus, surgery is following. 4. Stomach lesion rule out malignancy. CT as above. 5. Acute renal insufficiency. 6. History of cryptococcal meningitis/cryptococcoma status post treatment. 7. History of hepatitis B with spontaneous clearance. 8. History of syphilis status post treatment. 9. No known drug allergies. 10. Full Code. PLAN: 1. Monitor patient off of antibiotics. 2. Resume combination of antiretroviral therapy and Bactrim prophylaxis while taking oral medications and follow up with regular HIV provider at discharge. 3. Surgery is following. 4. Consider GI evaluation for esophagogastroduodenoscopy to visualize stomach lesion. 5. Monitor CBC and temperatures and angeles culture for acute change. 6. Monitor BMP. Thank you. We will follow. Pelon Adame M.D. DR: SRUTHI JOB#: [id number] CC: Jasmina Diego M.D.; Fax#: [phone] Orona
[2016-07-28] VITALS: BP 138/78
[2016-07-28] MEDS: Morphine Sulfate 2mg/ml Inj IV PRN ×4 (00:10→14:37)
--- NOTE | 2016-07-28 00:48 | Consultation ---
DATE OF CONSULTATION: 07/26/2016 SURGICAL CONSULTATION CONSULTING PHYSICIAN: Sae Bailey M.D. ATTENDING PHYSICIAN: Jasmina Diego M.D. PERTINENT HISTORY: The patient is a 61-year-old male, who came to the emergency room with complaints of diffuse abdominal pain, initially in the umbilical region, but moved into the epigastric region the day prior to admission, became more diffuse, with associated nausea and vomiting. He had a milder episode one week ago, which resolved spontaneously. He denies any diarrhea, no changing in stool habits, no narrowing of stool, and had a normal bowel movement the day prior to admission. PAST MEDICAL HISTORY: Pertinent for human immunodeficiency virus infection, history of anemia in the past, history of gastric esophageal reflux, history of hypertension, and history of meningitis many years ago. MEDICATIONS: He takes Naprosyn, Bactrim, Tivicay, docusate sodium, and Naprosyn p.r.n. ALLERGIES: None known. REVIEW OF SYSTEMS: HEENT: No headaches, tinnitus, or dysphagia. Cardiopulmonary: No history of chest pain, shortness of breath, cough, or sputum. Genitourinary: No history of dysuria, hematuria, or obstructive symptoms. Gastrointestinal: As above. PHYSICAL EXAMINATION: VITAL SIGNS: Blood pressure is 146/78, pulse is 76, respirations 16, and temperature is 97.8 degrees. GENERAL: A well-developed and well-nourished, middle-aged, male, in no distress, uncomfortable with a nasogastric tube in place, and some abdominal pain. HEENT: Normal. No scleral icterus. The mouth and throat are clear. The mucosa is slightly dehydrated. NECK: Supple. No masses. LUNGS: Clear. HEART: Rhythmic and regular. ABDOMEN: The abdomen is 3+, soft, distention with a small reducible umbilical hernia in the upper aspect of the umbilicus, some tenderness throughout the abdomen most pronounced in the upper epigastric region, no localized right lower quadrant tenderness, no masses. No groin adenopathy or groin hernias. EXTREMITIES: Good range of motion. GENITALIA: Normal genitalia. RECTAL: Normal tone. No masses. HEMATOLOGIC: Negative stool. LABORATORY VALUES: White blood count 12,800, hemoglobin 16.3, and hematocrit 48.2. Electrolytes, sodium 144, potassium 4.4, chloride 100, CO2 28, BUN 16, and creatinine 1.1. Urinalysis is normal. Abdominal CAT scan revealed multiple dilated small-bowel loops and fluid-filled stomach, also distended, and possible partial mechanical small bowel obstruction versus enteritis. There appears to be some transition in the right lower quadrant in the distal small bowel. There also appears to be a 4 cm low attenuation mass projecting off of the stomach consistent with a diverticulum of the stomach. There is no obvious mass. IMPRESSION: Abdominal pain, nausea, vomiting, and abdominal distention, possible early small bowel obstruction versus some kind of ileus, most likely from a viral syndrome. Other causes may be hidden Meckel's diverticulitis, mass in the ileocecal valve region, which has not been detected. PLAN: The patient has a nasogastric tube in place, intravenous hydration, and repeat abdominal x-rays have been ordered for tomorrow morning. We will follow the patient closely. If no answer in the next 24 hours or so, we will do an upper gastrointestinal series with small-bowel follow-through for further evaluation. Sae Bailey M.D. DR: JEROD JOB#: [id number] CC:
[2016-07-28 04:00] VITALS: BP 112/74
[2016-07-28] MEDS: D5 1/2NS 1,000 ML IV SCH ×3 (04:39→21:09)
[2016-07-28 07:14] LABS: BASOPHILS % (AUTO) 0.8 % (0.0-2.0); EOSINOPHILS % (AUTO) 2.7 % (0.0-3.0); LYMPHOCYTES % (AUTO) 23.6 % (20.0-45.0); MEAN CORPUSCULAR HEMOGLOBIN 30.5 PG (27.0-31.0); MEAN CORPUSCULAR HGB CONC 32.8 G/DL (32.0-36.0); MEAN CORPUSCULAR VOLUME 93 FL (80-99); MEAN PLATELET VOLUME 7.3 FL (6.5-10.1); PLATELET COUNT 168 K/UL (150-450); RED BLOOD COUNT 4.15 M/UL (4.70-6.10); RED CELL DISTRIBUTION WIDTH 12.7 % (11.6-14.8)
[2016-07-28 07:33] LABS: ANION GAP 12 (5-15); CALCIUM 8.6 mg/dL (8.6-10.2); CARBON DIOXIDE 28 mEQ/L (20-30); CHLORIDE 100 mEQ/L (98-107); CREATININE 1.2 mg/dL (0.7-1.2); GLOMERULAR FILTRATION RATE > 60 mL/min (>60); HEMOLYSIS 16; POTASSIUM 4.1 mEQ/L (3.4-4.9); SODIUM 140 mEQ/L (135-145)
[2016-07-28 08:15] VITALS: BP_SYST 143; BP_SYST 157; BP_DIAS 100; BP_DIAS 83
[2016-07-28] MEDS: Heparin 5000 units/ml inj SUBQ SCH ×2 (09:00→20:04)
--- NOTE | 2016-07-28 10:03 | Diagnostic Imaging Report ---
Indication: Abdominal distention Technique: Supine and upright views of the abdomen Comparison: 07/26/2016 Findings: Nasogastric tube is coiled within the gastric fundus. There are borderline dilated small bowel loops throughout the abdomen. Gas and stool are seen within the colon. Small bowel distention appears minimally improved since prior exam. Contrast is seen within the bladder on recent CT scan. L2 and L3 compression fracture deformities are again demonstrated Impression: Minimally improved small bowel distention, over one day. As previously discussed on prior CT scan, findings may represent partial small bowel obstruction or enteritis Stable satisfactory position of nasogastric tube
--- NOTE | 2016-07-28 10:17 | Infectious Diseases Prog Note ---
Assessment/Plan Assessment/Plan ASSESSMENT: 61 y/o male with: // HIV / AIDS, on cART ( [facility] ) - CD4 >400, VL undetectable per self report // Leukocytosis, mild - resolved, afebrile // Partial SBO vs vs ileus vs enteritis - surgery following, dec NGT output - CT A/P: moderately distended loops of small bowel. The findings could be due to ileus or enteritis. There is some evidence to suggest a mechanical bowel obstruction in the right lower quadrant as there are several loops of nondistended terminal ileum present. // Stomach lesion r/o malignancy - GI eval pending - CT A/P: low-attenuation mass that appears to be associated with the antrum of the stomach. The mass is exophytic to the stomach. // MAYELA - Cr 1.1-->1.3-->1.2 // h/o cryptococcal meningitis/cryptococcemia, rickettsia, HBV ( spontaneous clearance ), syphillis SP Rx // Negative: toxoplasma, histoplasma, cryptosporidium // NKDA // Full Code PLAN: - monitor pt off of ABX - resume cART, bactrim when taking PO, f/u regular HIV provider at discharge - surgery following - NGT to LIS - GI eval for EGD visualize stomach lesion - monitor CBC, temperatures, angeles-culture if acute change - monitor BMP Subjective Allergies: Coded Allergies: No Known Allergies (Verified , 08/13/06) Subjective remains afebrile. dec NGT output abdo pain Objective Vital Signs Last 24 Hour Vital Signs Date Time Temp Pulse Resp B/P Pulse Ox O2 Delivery O2 Flow Rate FiO2 07/28/16 08:15 98.1 80 21 143/100 97 Room Air 07/28/16 06:00 112/74 07/28/16 04:00 97.2 68 19 112/74 96 Room Air 07/28/16 00:00 97.3 73 18 138/78 98 Room Air 07/27/16 22:27 134/94 07/27/16 20:04 96.8 07/27/16 20:00 96.8 78 19 134/94 97 Room Air 07/27/16 16:35 97.0 76 16 136/89 96 Room Air 07/27/16 14:11 156/101 07/27/16 11:57 98.6 76 15 131/86 96 Room Air Height (Feet): 5 Height (Inches): 5.00 Weight (Pounds): 170 General Appearance: no acute distress HEENT: other - NGT Respiratory/Chest: no respiratory distress Cardiovascular: normal rate, regular rhythm Abdomen: normal bowel sounds, distended, tender Microbiology Date/Time Source Procedure Growth Status 07/26/16 11:00 Nasal Nares MRSA Culture - Final NO METHICILLIN RESISTANT STAPH AUREUS... Complete 07/26/16 11:00 Rectum VRE Culture - Final NO VANCOMYCIN RESISTANT ENTEROCOCCUS ... Complete Laboratory Tests Test 07/28/16 05:35 White Blood Count 5.0 K/UL (4.8-10.8) Red Blood Count 4.15 M/UL (4.70-6.10) L Hemoglobin 12.7 G/DL (14.2-18.0) L Hematocrit 38.6 % (42.0-52.0) L Mean Corpuscular Volume 93 FL (80-99) Mean Corpuscular Hemoglobin 30.5 PG (27.0-31.0) Mean Corpuscular Hemoglobin Concent 32.8 G/DL (32.0-36.0) Red Cell Distribution Width 12.7 % (11.6-14.8) Platelet Count 168 K/UL (150-450) Mean Platelet Volume 7.3 FL (6.5-10.1) Neutrophils (%) (Auto) 62.0 % (45.0-75.0) Lymphocytes (%) (Auto) 23.6 % (20.0-45.0) Monocytes (%) (Auto) 11.0 % (1.0-10.0) H Eosinophils (%) (Auto) 2.7 % (0.0-3.0) Basophils (%) (Auto) 0.8 % (0.0-2.0) Sodium Level 140 mEQ/L (135-145) Potassium Level 4.1 mEQ/L (3.4-4.9) Chloride Level 100 mEQ/L (98-107) Carbon Dioxide Level 28 mEQ/L (20-30) Anion Gap 12 (5-15) Blood Urea Nitrogen 15 mg/dL (7-23) Creatinine 1.2 mg/dL (0.7-1.2) Estimat Glomerular Filtration Rate > 60 mL/min (>60) Glucose Level 95 mg/dL (74-106) Calcium Level 8.6 mg/dL (8.6-10.2) Current Medications Medications (Trade) Dose Ordered Sig/Sam Route PRN Reason Start Time Stop Time Status Last Admin Dose Admin Clonidine HCl (Catapres) 0.1 mg EVERY 8 HOURS ORAL 07/26/16 16:00 08/25/16 15:59 07/27/16 22:27 Dextrose/Sodium Chloride (D5 0.45% NS) 1,000 ml @ 100 mls/hr Q10H IV 07/26/16 13:30 08/25/16 13:29 07/28/16 04:39 Heparin Sodium (Porcine) (Heparin 5000 units/ml) 5,000 units EVERY 12 HOURS SUBQ 07/26/16 21:00 08/25/16 20:59 07/27/16 08:30 Hydralazine HCl (Apresoline) 10 mg Q4H PRN IV For High Blood Pressure 07/26/16 23:15 08/25/16 23:14 Morphine Sulfate (Morphine Sulfate) 2 mg Q4H PRN IV PAIN 4-10 07/26/16 13:00 08/02/16 12:59 07/28/16 09:15 Ondansetron HCl (Zofran) 4 mg Q6H PRN IVP Nausea & Vomiting 07/26/16 13:00 08/25/16 12:59 07/26/16 14:35 Ranitidine HCl (Zantac) 150 mg BEDTIME ORAL 07/26/16 21:00 08/25/16 20:59 07/27/16 22:26 TISHA CURTIS 20, 2017 10:17
--- NOTE | 2016-07-28 10:42 | General Progress Note ---
Progress Note Progress Note Surgery: patient seen and examined at bedside. doing well. states he feels better this morning. pain minimal. mild nausea, no emesis. no fever or chills. Small supraumbilical hernia identified and reducible. CT scan with abnormal mass/protrusion in stomach. EGD to evaluate gastric mass for now. no emergent surgery for ventral hernia but may need it repaired prior to discharge Lance Sánchez Jul 28, 2016 10:42
[2016-07-28 16:00] VITALS: BP 139/89
[2016-07-28] MEDS: Morphine Sulfate 4mg/ml Inj IVP PRN ×2 (17:17→22:11)
--- NOTE | 2016-07-28 17:21 | Pulmonology Progress Note ---
Assessment/Plan Problems: (1) SBO (small bowel obstruction) (2) HIV (human immunodeficiency virus infection) (3) GERD (gastroesophageal reflux disease) (4) Intractable abdominal pain Assessment/Plan NPO Ng suction GI and surgery evaluation pain management Subjective ROS Limited/Unobtainable: No Interval Events: has ng tube, Allergies: Coded Allergies: No Known Allergies (Verified , 08/13/06) Objective Last 24 Hour Vital Signs Date Time Temp Pulse Resp B/P Pulse Ox O2 Delivery O2 Flow Rate FiO2 07/28/16 15:07 98.1 07/28/16 14:36 143/100 07/28/16 08:15 98.1 80 21 143/100 97 Room Air 07/28/16 06:00 112/74 07/28/16 04:00 97.2 68 19 112/74 96 Room Air 07/28/16 00:00 97.3 73 18 138/78 98 Room Air 07/27/16 22:27 134/94 07/27/16 20:00 96.8 78 19 134/94 97 Room Air Intake and Output 07/27/16 07/28/16 19:00 07:00 Intake Total 0 ml 700 ml Output Total 400 ml 1100 ml Balance -400 ml -400 ml Intake Oral 0 ml IV Total 700 ml Output Urine Total 400 ml 1100 ml # Voids 2 4 Objective General Appearance: WD/WN, no apparent distress, alert Lines, tubes and drains: peripheral HEENT: normocephalic, atraumatic, anicteric, mucous membranes moist Neck: non-tender, supple Respiratory/Chest: chest wall non-tender, normal breath sounds - with moderate air exchange , Cardiovascular/Chest: normal rate, regular rhythm, no JVD Abdomen: normal bowel sounds, non tender, soft Extremities: no calf tenderness, normal capillary refill Microbiology Date/Time Source Procedure Growth Status 07/26/16 11:00 Nasal Nares MRSA Culture - Final NO METHICILLIN RESISTANT STAPH AUREUS... Complete 07/26/16 11:00 Rectum VRE Culture - Final NO VANCOMYCIN RESISTANT ENTEROCOCCUS ... Complete Laboratory Tests 07/28/16 05:35: White Blood Count 5.0, Red Blood Count 4.15L, Hemoglobin 12.7L, Hematocrit 38.6L , Mean Corpuscular Volume 93, Mean Corpuscular Hemoglobin 30.5, Mean Corpuscular Hemoglobin Concent 32.8, Red Cell Distribution Width 12.7, Platelet Count 168, Mean Platelet Volume 7.3, Neutrophils (%) (Auto) 62.0, Lymphocytes (% ) (Auto) 23.6, Monocytes (%) (Auto) 11.0H, Eosinophils (%) (Auto) 2.7, Basophils (%) (Auto) 0.8, Sodium Level 140, Potassium Level 4.1, Chloride Level 100, Carbon Dioxide Level 28, Anion Gap 12, Blood Urea Nitrogen 15, Creatinine 1.2, Estimat Glomerular Filtration Rate > 60, Glucose Level 95, Calcium Level 8.6 Current Medications Medications (Trade) Dose Ordered Sig/Sam Route PRN Reason Start Time Stop Time Status Last Admin Dose Admin Clonidine HCl (Catapres) 0.1 mg EVERY 8 HOURS ORAL 07/26/16 16:00 08/25/16 15:59 07/28/16 14:36 Dextrose/Sodium Chloride (D5 0.45% NS) 1,000 ml @ 100 mls/hr Q10H IV 07/26/16 13:30 08/25/16 13:29 07/28/16 04:39 Heparin Sodium (Porcine) (Heparin 5000 units/ml) 5,000 units EVERY 12 HOURS SUBQ 07/26/16 21:00 08/25/16 20:59 07/27/16 08:30 Hydralazine HCl (Apresoline) 10 mg Q4H PRN IV For High Blood Pressure 07/26/16 23:15 08/25/16 23:14 Morphine Sulfate (Morphine Sulfate) 4 mg Q4H PRN IVP For Pain 07/28/16 16:30 08/04/16 16:29 07/28/16 17:17 Ondansetron HCl (Zofran) 4 mg Q6H PRN IVP Nausea & Vomiting 07/26/16 13:00 08/25/16 12:59 07/26/16 14:35 Ranitidine HCl (Zantac) 150 mg BEDTIME ORAL 07/26/16 21:00 08/25/16 20:59 07/27/16 22:26 GEORGIE VICTORIA Jul 28, 2016 17:21
--- NOTE | 2016-07-28 19:58 | Consultation ---
DATE OF CONSULTATION: 07/28/2016 GASTROENTEROLOGY CONSULTATION CHIEF COMPLAINT: Nausea, vomiting, and abdominal pain. HISTORY OF PRESENT ILLNESS: The patient is a 61-year-old male with history of human immunodeficiency virus, on medication, apparently with a good CD4 count, came to the hospital with a complaint of one-day of nausea, vomiting bilious material, and also abdominal pain. In the ER, the patient had a CT of the abdomen and pelvis, there was a question for ileus versus small bowel obstruction. The patient also had evidence of questionable gastric mass, so GI consult was requested for evaluation of above. PAST MEDICAL HISTORY: 1. Human immunodeficiency virus. 2. Hypertension. 3. History of meningitis. 4. GERD. 5. Kidney stones. 6. Anemia. 7. Childhood chickenpox. PAST SURGICAL HISTORY: History of mastoidectomy. MEDICATIONS: Please see medication reconciliation list. ALLERGIES: No known drug allergies. SOCIAL HISTORY: There is no recent history of tobacco, alcohol, or illicit drug abuse. FAMILY HISTORY: Noncontributory. REVIEW OF SYSTEMS: A 10-point review of system was performed and pertinent positives in history of present illness. PHYSICAL EXAMINATION: VITAL SIGNS: Temperature 98.1 degrees, pulse 80, respirations 21, and blood pressure is 148/100. HEENT: Normocephalic and atraumatic. Sclerae anicteric. NECK: Supple. No lymphadenopathy. CARDIOVASCULAR: Regular rate and rhythm. Plus S1 and S2. LUNGS: Decreased breath sounds bilaterally based on the supine exam. ABDOMEN: Soft. Bowel sounds are hypoactive. Abdomen is mildly distended. No rebound. No guarding. No peritoneal sign. EXTREMITIES: No cyanosis. No clubbing. No edema. LABORATORY DATA: White count is 5, hemoglobin 12, hematocrit 38, and platelet count of 168,000. Chem-7, sodium 140, potassium 4.1, BUN is 16, and creatinine is 1.2. ASSESSMENT AND PLAN: This is a 61-year-old male with human immunodeficiency virus, nausea, vomiting, abdominal pain, questionable gastric mass, and questionable small bowel obstruction. PLAN: At this time, the patient has an NG tube in place. There is further a possibility of small bowel obstruction. I am still waiting for the surgeons to decide, which way they are going to go, if there is no plan for surgery if there is a plan to remove the NG tube and when the small bowel obstruction completely resolve, we will plan to do an endoscopy, possibly hopefully tomorrow if the patient continues to improve this way to rule out malignancy. Meanwhile, we are going to send CEA level and we will follow up closely. I want to thank, Dr. Diego, for this kind referral. John Kyle M.D. DR: NAYELI JOB#: [id number] CC: Jasmina Diego M.D.
[2016-07-28 20:00] VITALS: BP 131/83
[2016-07-29] VITALS (12 sets, daily range): BP systolic 95–140; BP diastolic 56–93
[2016-07-29] MEDS: Morphine Sulfate 4mg/ml Inj IVP PRN ×5 (02:06→21:43)
[2016-07-29] MEDS: D5 1/2NS 1,000 ML IV SCH ×2 (06:01→20:14)
[2016-07-29] MEDS: Heparin 5000 units/ml inj SUBQ SCH ×2 (07:56→21:42)
--- NOTE | 2016-07-29 10:24 | Infectious Diseases Prog Note ---
Assessment/Plan Assessment/Plan ASSESSMENT: 61 y/o male with: // HIV / AIDS, on cART ( brandon perry ) - CD4 >400, VL undetectable per self report // Diarrhea r/o infectious - improving // Leukocytosis, mild - resolved, afebrile // Partial SBO vs vs ileus vs enteritis - surgery following, dec NGT output - CT A/P: moderately distended loops of small bowel. The findings could be due to ileus or enteritis. There is some evidence to suggest a mechanical bowel obstruction in the right lower quadrant as there are several loops of nondistended terminal ileum present. // Stomach lesion r/o malignancy - awaiting EGD - CT A/P: low-attenuation mass that appears to be associated with the antrum of the stomach. The mass is exophytic to the stomach. - CEA WNL // MAYELA - Cr 1.1-->1.3-->1.2 // h/o cryptococcal meningitis/cryptococcemia, rickettsia, HBV ( spontaneous clearance ), syphillis SP Rx // Negative: toxoplasma, histoplasma, cryptosporidium // NKDA // Full Code PLAN: - monitor pt off of ABX - resume cART, bactrim when taking PO, f/u regular HIV provider at discharge - stool studies if persistent diarrhea - surgery following - NGT to LIS - EGD per GI - monitor CBC, temperatures, angeles-culture if acute change - monitor BMP Subjective Allergies: Coded Allergies: No Known Allergies (Verified , 08/13/06) Subjective remains afebrile. NGT removed abdo pain, new diarrhea Objective Vital Signs Last 24 Hour Vital Signs Date Time Temp Pulse Resp B/P Pulse Ox O2 Delivery O2 Flow Rate FiO2 07/29/16 08:00 97.3 69 20 128/76 99 Room Air 07/29/16 06:12 123/79 07/29/16 04:00 97.3 61 18 123/79 96 Room Air 07/29/16 00:00 97.0 62 18 120/80 96 Room Air 07/28/16 21:05 139/89 07/28/16 20:00 97.2 68 16 131/83 96 Room Air 07/28/16 17:47 98.1 07/28/16 16:00 97.2 18 139/89 96 Room Air 07/28/16 15:07 98.1 07/28/16 14:36 143/100 Height (Feet): 5 Height (Inches): 10.00 Weight (Pounds): 170 General Appearance: no acute distress HEENT: other Respiratory/Chest: no respiratory distress Cardiovascular: normal rate, regular rhythm Abdomen: normal bowel sounds, non distended, tender Microbiology Date/Time Source Procedure Growth Status 07/26/16 11:00 Nasal Nares MRSA Culture - Final NO METHICILLIN RESISTANT STAPH AUREUS... Complete 07/26/16 11:00 Rectum VRE Culture - Final NO VANCOMYCIN RESISTANT ENTEROCOCCUS ... Complete Laboratory Tests Test 07/29/16 05:00 Carcinoembryonic Antigen 2.9 ng/mL Current Medications Medications (Trade) Dose Ordered Sig/Sam Route PRN Reason Start Time Stop Time Status Last Admin Dose Admin Clonidine HCl (Catapres) 0.1 mg EVERY 8 HOURS ORAL 07/26/16 16:00 08/25/16 15:59 07/29/16 06:12 Dextrose/Sodium Chloride (D5 0.45% NS) 1,000 ml @ 100 mls/hr Q10H IV 07/26/16 13:30 08/25/16 13:29 07/29/16 06:01 Heparin Sodium (Porcine) (Heparin 5000 units/ml) 5,000 units EVERY 12 HOURS SUBQ 07/26/16 21:00 08/25/16 20:59 07/27/16 08:30 Hydralazine HCl (Apresoline) 10 mg Q4H PRN IV For High Blood Pressure 07/26/16 23:15 08/25/16 23:14 Morphine Sulfate (Morphine Sulfate) 4 mg Q4H PRN IVP For Pain 07/28/16 16:30 08/04/16 16:29 07/29/16 06:12 Ondansetron HCl (Zofran) 4 mg Q6H PRN IVP Nausea & Vomiting 07/26/16 13:00 08/25/16 12:59 07/26/16 14:35 Ranitidine HCl (Zantac) 150 mg BEDTIME ORAL 07/26/16 21:00 08/25/16 20:59 07/28/16 20:04 TISHA CURTIS 21, 2017 10:24
--- NOTE | 2016-07-29 10:53 | General Progress Note ---
Progress Note Progress Note Afebrile. Pt is feeling better. The UGI-SBFT showed passage of contrast into colon, no SBO. He is having some diarrhea this AM. He is pending an EGD today. He does not require surgical intervention at this time. Irving Arnold MD Jul 29, 2016 10:53
[2016-07-29] MEDS ORDERED: NS 550ML IV ONE ×2 (12:20→12:21)
--- NOTE | 2016-07-29 12:23 | Pre-Procedure Note/Attestation ---
Pre-Procedure Note/Attestation Complete Prior to Procedure Planned Procedure: not applicable Procedure Narrative: egd Indications for Procedure Pre-Operative Diagnosis: anemia Attestation I attest that I discussed the nature of the procedure; its benefits; risks and complications; and alternatives (and the risks and benefits of such alternatives ), prior to the procedure, with the patient (or the patient's legal independent sales representative). I attest that, if there was a reasonable possibility of needing a blood transfusion, the patient (or the patient's legal independent sales representative) was given the [facility] standardized written summary, pursuant to the [employer] [place] Blood Safety Act ([place] Health and Safety Code # 1645, as amended). I attest that I re-evaluated the patient just prior to the surgery and that there has been no change in the patient's H&P, except as documented below: GABBY MONTES Jul 29, 2016 12:23
--- NOTE | 2016-07-29 12:38 | Immediate Post-Op Evaluation ---
Immediate Post-Op Evalulation Immediate Post-Op Evalulation Procedure: EGD Date of Evaluation: Jul 29, 2016 Time of Evaluation: 12:50 IV Fluids: 250 Blood Pressure Systolic: 100 Blood Pressure Diastolic: 60 Pulse Rate: 56 Respiratory Rate: 16 O2 Sat by Pulse Oximetry: 100 Temperature (Fahrenheit): 97.9 Pain Score (1-10): 0 Nausea: No Vomiting: No Complications No complication Patient Status: awake, patent, none Hydration Status: adequate Drug: None EDILIA SINGH M.D. Jul 29, 2016 12:38
--- NOTE | 2016-07-29 12:39 | Endoscopy Procedure Note ---
Endoscopy Procedure Note Indication for Procedure: abd mass Procedures Performed: EGD Operative Findings/Diagnosis: gastritis Specimen: yes Pt Tolerated Procedure Well: Yes Estimated Blood Loss: none Anesthesiologist: see chart Anesthesia: MAC Implant(s) used?: No 50 yrs or older w/o bx or poly: Not Applicable 10yrs. F/U not recommended: Not Applicable GABBY MONTES Jul 29, 2016 12:39
[2016-07-29] MEDS ORDERED: fentaNYL 100 mcg/2 mL IV PRN (12:45)
--- NOTE | 2016-07-29 12:55 | Anethesia Preoperative Eval ---
Anesthesia Pre-op PMH/ROS General Date of Evaluation: Jul 29, 2016 Time of Evaluation: 12:10 Anesthesiologist: Rebecca ASA Score: ASA 3 Mallampati Score Class I : Soft palate, uvula, fauces, pillars visible Class II: Soft palate, uvula, fauces visible Class III: Soft palate, base of uvula visible Class IV: Only hard plate visible Mallampati Classification: Class II Surgeon: Saroj Diagnosis: Abdominal pain Surgical Procedure: EGD Family History: no anesthesia problems Allergies: Coded Allergies: No Known Allergies (Verified , 08/13/06) Past Medical History Cardiovascular: Reports: HTN PMH Narrative: HIV +, HTN PSxH Narrative: Mastoid resection Anesthesia Pre-op Phys. Exam Physician Exam Last Vital Signs Date Time Temp Pulse Resp B/P Pulse Ox O2 Delivery O2 Flow Rate FiO2 07/29/16 12:45 97.1 55 14 95/56 100 Simple Mask 6.0 Constitutional: NAD Neurologic: CN 2-12 intact Cardiovascular: RRR, no M/R/G Respiratory: CTA Gastrointestinal: S/NT/ND Airway Exam Mallampati Score: Class II MO: full ROM: full Teeth: intact Anesthesia Pre-op A/P Labs Chemistry Test 07/29/16 05:00 Carcinoembryonic Antigen 2.9 ng/mL Risk Assessment & Plan Assessment: For EGD Plan: GA Status Change Before Surgery: No Pre-Antibiotics Drug: None EDILIA SINGH M.D. Jul 29, 2016 12:55
[2016-07-29 15:11] LABS: CD3 ABSOLUTE 1166 /uL (622-2402); CD4 ABSOLUTE 224 /uL (359-1519); CD8 ABSOLUTE 939 /uL (109-897); LYMPHOCYTES ABSOLUTE 1.6 x10E3/uL (0.7-3.1); LYMPHS 15 % (.); WBC 10.6 x10E3/uL (3.4-10.8)
[2016-07-29] MEDS ORDERED: D5NS 1000ml IV ONE (16:40)
[2016-07-29] MEDS ORDERED: D5 1/2NS 1000ml IV ONE ×2 (16:40→17:36)
[2016-07-29] MEDS ORDERED: Sterile Water Irrig 1000ml IRRIG ONE (16:40)
--- NOTE | 2016-07-29 16:58 | Pulmonology Progress Note ---
Assessment/Plan Problems: (1) SBO (small bowel obstruction) (2) HIV (human immunodeficiency virus infection) (3) GERD (gastroesophageal reflux disease) (4) Intractable abdominal pain Assessment/Plan s/p endoscopy, showing gastritis, biopsy negative iv fluids check electrolytes pain management Subjective ROS Limited/Unobtainable: No Allergies: Coded Allergies: No Known Allergies (Verified , 08/13/06) Objective Last 24 Hour Vital Signs Date Time Temp Pulse Resp B/P Pulse Ox O2 Delivery O2 Flow Rate FiO2 07/29/16 14:00 115/74 07/29/16 13:20 97.0 69 20 115/74 97 Room Air 07/29/16 13:15 59 18 121/83 96 Room Air 07/29/16 13:10 97.0 57 17 123/87 96 Room Air 07/29/16 13:00 62 17 112/79 96 Room Air 07/29/16 12:55 57 18 117/88 100 Simple Mask 6.0 07/29/16 12:53 56 16 100 07/29/16 12:50 56 16 100/60 100 Simple Mask 6.0 07/29/16 12:45 97.1 55 14 95/56 100 Simple Mask 6.0 07/29/16 11:04 97.3 07/29/16 08:00 97.3 69 20 128/76 99 Room Air 07/29/16 06:12 123/79 07/29/16 04:00 97.3 61 18 123/79 96 Room Air 07/29/16 00:00 97.0 62 18 120/80 96 Room Air 07/28/16 21:05 139/89 07/28/16 20:00 97.2 68 16 131/83 96 Room Air Intake and Output 07/28/16 07/29/16 19:00 07:00 Intake Total 400 ml 1100 ml Output Total 450 ml Balance -50 ml 1100 ml IV Total 400 ml 1100 ml Output Urine Total 450 ml # Voids 7 # Bowel Movements 1 4 Objective General Appearance: WD/WN, no apparent distress, alert Lines, tubes and drains: peripheral HEENT: normocephalic, atraumatic, anicteric, mucous membranes moist Neck: non-tender, supple Respiratory/Chest: chest wall non-tender, normal breath sounds - with moderate air exchange , Cardiovascular/Chest: normal rate, regular rhythm, no JVD Abdomen: normal bowel sounds, non tender, soft Extremities: no calf tenderness, normal capillary refill Laboratory Tests 07/29/16 05:00: Carcinoembryonic Antigen 2.9 Current Medications Medications (Trade) Dose Ordered Sig/Sam Route PRN Reason Start Time Stop Time Status Last Admin Dose Admin Clonidine HCl (Catapres) 0.1 mg EVERY 8 HOURS ORAL 07/26/16 16:00 08/25/16 15:59 07/29/16 06:12 Dextrose/Sodium Chloride (D5 0.45% NS) 1,000 ml @ 100 mls/hr Q10H IV 07/26/16 13:30 08/25/16 13:29 07/29/16 06:01 Fentanyl Citrate (Sublimaze 100 mcg/2 mL) 25 mcg Q10M PRN IV Moderate Pain (Pain Scale 4-6) 07/29/16 12:45 07/29/16 19:00 Heparin Sodium (Porcine) (Heparin 5000 units/ml) 5,000 units EVERY 12 HOURS SUBQ 07/26/16 21:00 08/25/16 20:59 07/27/16 08:30 Hydralazine HCl (Apresoline) 10 mg Q4H PRN IV For High Blood Pressure 07/26/16 23:15 08/25/16 23:14 Morphine Sulfate (Morphine Sulfate) 4 mg Q4H PRN IVP For Pain 07/28/16 16:30 08/04/16 16:29 07/29/16 10:34 Ondansetron HCl (Zofran) 4 mg Q1H PRN IVP Nausea & Vomiting 07/29/16 12:45 07/29/16 19:00 Ondansetron HCl (Zofran) 4 mg Q6H PRN IVP Nausea & Vomiting 07/26/16 13:00 08/25/16 12:59 07/26/16 14:35 Ranitidine HCl (Zantac) 150 mg BEDTIME ORAL 07/26/16 21:00 08/25/16 20:59 07/28/16 20:04 GEORGIE VICTORIA Jul 29, 2016 16:58
--- NOTE | 2016-07-29 20:49 | Procedure Note ---
DATE OF PROCEDURE: 07/29/2016 SURGEON: John Kyle M.D. PROCEDURE: Upper endoscopy with biopsy. INSTRUMENT: Olympus adult flexible upper endoscope. INDICATION: Gastric mass seen on the CT scan. REASON FOR PROCEDURE: The procedure, risks, benefits, and possible consequences, including hemorrhage, aspiration, perforation and infection, and alternative treatments, were explained to the patient/legal guardian by Dr. John Kyle and the patient/legal guardian understood and accepted these risks. DESCRIPTION OF PROCEDURE: After informed consent was obtained and the patient was adequately sedated, Olympus upper endoscope was advanced from mouth into the second portion of the duodenum and retroflexion was performed in the stomach. The patient had diffuse gastritis. The small hiatal hernia. Distal esophageal ring. No obvious active bleeding. No obvious mass was seen. Biopsy from antrum was obtained. The patient tolerated the procedure well without any complication. SUMMARY OF FINDINGS: 1. Small hiatal hernia. 2. Distal esophageal ring. 3. Gastritis, status post biopsy. RECOMMENDATIONS: Follow up biopsy results and treat accordingly. John Kyle M.D. DR: NAYELI JOB#: [id number] CC:
[2016-07-29] MEDS ORDERED: GLUCOSAMINE &1 EAC2 PO (21:35)
[2016-07-29] MEDS ORDERED: BACTRIM-DS1 EA ORAL (21:35)
[2016-07-29] MEDS ORDERED: DESCOVY 200-251 EACH PO (21:35)
[2016-07-29] MEDS ORDERED: TIVICAY50 MG ORAL (21:35)
[2016-07-29] MEDS ORDERED: MULTIVITAMINS1 EAC2 ORAL (21:41)
[2016-07-30] VITALS: BP 145/98
[2016-07-30] MEDS: Morphine Sulfate 4mg/ml Inj IVP PRN ×5 (01:40→21:34)
[2016-07-30 04:00] VITALS: BP 133/78
[2016-07-30] MEDS: D5 1/2NS 1,000 ML IV SCH ×2 (06:01→17:51)
[2016-07-30 08:15] VITALS: BP 121/75
[2016-07-30] MEDS ORDERED: Propofol 10mg/ml 20ml IV ONE (09:15)
[2016-07-30] MEDS: Heparin 5000 units/ml inj SUBQ SCH ×2 (09:38→21:34)
--- NOTE | 2016-07-30 10:00 | Infectious Diseases Prog Note ---
Assessment/Plan Assessment/Plan ASSESSMENT: 61 y/o male with: // HIV / AIDS, on cART ( brandon perry ) - CD4 224(14%), VL undetectable per self report // Diarrhea - resolved // Leukocytosis, mild - resolved, afebrile // Partial SBO vs vs ileus vs enteritis - surgery following - CT A/P: moderately distended loops of small bowel. The findings could be due to ileus or enteritis. There is some evidence to suggest a mechanical bowel obstruction in the right lower quadrant as there are several loops of nondistended terminal ileum present. // Stomach lesion r/o malignancy - SP EGD 07/29: diffuse gastritis, small hiatal hernia, distal esophageal ring. Path: pending - CT A/P: low-attenuation mass that appears to be associated with the antrum of the stomach. The mass is exophytic to the stomach. - CEA WNL // MAYELA - Cr 1.1-->1.3-->1.2 // h/o cryptococcal meningitis/cryptococcemia, rickettsia, HBV ( spontaneous clearance ), syphillis SP Rx // Negative: toxoplasma, histoplasma, cryptosporidium // NKDA // Full Code PLAN: - monitor pt off of ABX - resume cART, bactrim now that taking PO ( ok to take home meds ), f/u regular HIV provider at discharge - f/u path - stool studies if recurrent diarrhea - monitor CBC, temperatures, angeles-culture if acute change - monitor BMP Subjective Allergies: Coded Allergies: No Known Allergies (Verified , 08/13/06) Subjective remains afebrile. tolerating clears, wants more solid food SP EGD: diffuse gastritis, small hiatal hernia, distal esophageal ring Objective Vital Signs Last 24 Hour Vital Signs Date Time Temp Pulse Resp B/P Pulse Ox O2 Delivery O2 Flow Rate FiO2 07/30/16 08:15 97.9 61 22 121/75 97 Room Air 07/30/16 06:05 133/78 07/30/16 04:00 96.8 73 18 133/78 98 Room Air 07/30/16 00:00 97.5 63 18 145/98 99 Room Air 07/29/16 22:13 97.7 07/29/16 21:40 140/93 3/21/17 20:00 97.7 61 15 140/93 99 Room Air 07/29/16 16:00 96.4 60 18 128/87 98 Room Air 07/29/16 14:00 115/74 07/29/16 13:20 97.0 69 20 115/74 97 Room Air 07/29/16 13:15 59 18 121/83 96 Room Air 07/29/16 13:10 97.0 57 17 123/87 96 Room Air 07/29/16 13:00 62 17 112/79 96 Room Air 07/29/16 12:55 57 18 117/88 100 Simple Mask 6.0 07/29/16 12:53 56 16 100 07/29/16 12:50 56 16 100/60 100 Simple Mask 6.0 07/29/16 12:45 97.1 55 14 95/56 100 Simple Mask 6.0 Height (Feet): 5 Height (Inches): 10.00 Weight (Pounds): 170 General Appearance: no acute distress Respiratory/Chest: no respiratory distress Cardiovascular: normal rate, regular rhythm Abdomen: normal bowel sounds, soft, non tender, non distended Current Medications Medications (Trade) Dose Ordered Sig/Sam Route PRN Reason Start Time Stop Time Status Last Admin Dose Admin Clonidine HCl (Catapres) 0.1 mg EVERY 8 HOURS ORAL 07/26/16 16:00 08/25/16 15:59 07/30/16 06:05 Dextrose/Sodium Chloride (D5 0.45% NS) 1,000 ml @ 100 mls/hr Q10H IV 07/26/16 13:30 08/25/16 13:29 07/30/16 06:01 Heparin Sodium (Porcine) (Heparin 5000 units/ml) 5,000 units EVERY 12 HOURS SUBQ 07/26/16 21:00 08/25/16 20:59 07/30/16 09:38 Hydralazine HCl (Apresoline) 10 mg Q4H PRN IV For High Blood Pressure 07/26/16 23:15 08/25/16 23:14 Morphine Sulfate (Morphine Sulfate) 4 mg Q4H PRN IVP For Pain 07/28/16 16:30 08/04/16 16:29 07/30/16 06:10 Ondansetron HCl (Zofran) 4 mg Q6H PRN IVP Nausea & Vomiting 07/26/16 13:00 08/25/16 12:59 07/26/16 14:35 Ranitidine HCl (Zantac) 150 mg BEDTIME ORAL 07/26/16 21:00 08/25/16 20:59 07/29/16 21:41 TISHA CURTIS 22, 2017 10:00
--- NOTE | 2016-07-30 10:13 | General Progress Note ---
Assessment/Plan Problem List: (1) Anemia ICD Codes: D64.9 - Anemia, unspecified SNOMED: 713545993 (2) GERD (gastroesophageal reflux disease) ICD Codes: K21.9 - Gastro-esophageal reflux disease without esophagitis SNOMED: 470012148 (3) HTN (hypertension) ICD Codes: I10 - Essential (primary) hypertension SNOMED: 92829263 (4) HIV (human immunodeficiency virus infection) ICD Codes: Z21 - Asymptomatic human immunodeficiency virus [HIV] infection status SNOMED: 68866319 Assessment/Plan s/p EGD yesterday fu labs fu biopsy results pain control advance diet Subjective ROS Limited/Unobtainable: Yes Allergies: Coded Allergies: No Known Allergies (Verified , 08/13/06) Subjective no event Objective Last 24 Hour Vital Signs Date Time Temp Pulse Resp B/P Pulse Ox O2 Delivery O2 Flow Rate FiO2 07/30/16 08:15 97.9 61 22 121/75 97 Room Air 07/30/16 06:05 133/78 07/30/16 04:00 96.8 73 18 133/78 98 Room Air 07/30/16 00:00 97.5 63 18 145/98 99 Room Air 07/29/16 22:13 97.7 07/29/16 21:40 140/93 07/29/16 20:00 97.7 61 15 140/93 99 Room Air 07/29/16 16:00 96.4 60 18 128/87 98 Room Air 07/29/16 14:00 115/74 07/29/16 13:20 97.0 69 20 115/74 97 Room Air 07/29/16 13:15 59 18 121/83 96 Room Air 07/29/16 13:10 97.0 57 17 123/87 96 Room Air 07/29/16 13:00 62 17 112/79 96 Room Air 07/29/16 12:55 57 18 117/88 100 Simple Mask 6.0 07/29/16 12:53 56 16 100 07/29/16 12:50 56 16 100/60 100 Simple Mask 6.0 07/29/16 12:45 97.1 55 14 95/56 100 Simple Mask 6.0 Intake and Output 07/29/16 07/30/16 19:00 07:00 Intake Total 1200 ml 1360 ml Output Total 0 ml Balance 1200 ml 1360 ml Intake Oral 360 ml IV Total 1200 ml 1000 ml Estimated Blood Loss 0 ml # Voids 4 # Bowel Movements 1 1 Height (Feet): 5 Height (Inches): 10.00 Weight (Pounds): 170 General Appearance: alert EENT: normal ENT inspection Neck: supple Cardiovascular: normal rate Respiratory/Chest: decreased breath sounds Abdomen: normal bowel sounds, non tender, soft Extremities: non-tender GABBY MONTES Jul 30, 2016 10:13
[2016-07-30] MEDS ORDERED: Emitricitabine/Tenofovir 200/300mg tab ORAL SCH (11:00)
[2016-07-30] MEDS ORDERED: Dolutegravir Sodium 50mg tab ORAL SCH (11:15)
[2016-07-30 12:07] VITALS: BP 125/68
--- NOTE | 2016-07-30 12:33 | General Progress Note ---
Progress Note Progress Note Surgery: Patient seen and examined at bedside. No acute events. Abdominal pain resolved. No n/v/f/c. tolerating regular diet. +flatus and BM. Afebrile, HD stable, labs reviewed. EGD with gastritis but no mass noted. Reviewed films with radiologist and mass in antrum near pylorus and looks to be submural. Gastric mass - offered surgery with biopsy vs resection of mass vs monitoring with repeat CT scan at later date. After discussing options including risks and benefits (including not having definitive diagnosis) patient expressed that he did not want surgery at this time or biopsy and would prefer least invasive method. He has elected to monitor mass with repeat CT scan after discharge. Umbilical hernia - reducible. painful at times but not tender. small. patient would like to have umbilical hernia repaired electively. After discussing above patient expressed understanding. He plans to have discussion with his PCP for referral to surgeon for elective hernia repair and for repeat CT scan at later date. He understands that it is important to follow up on this and that if left unmonitored it would be dangerous. He states he has appointment with his PCP next week. okay to d/c from surgical standpoint Lance Sánchez Jul 30, 2016 12:33
[2016-07-30] MEDS: Bactrim DS (160mg/800mg) tab ORAL SCH (13:50)
[2016-07-30] MEDS ORDERED: D5 1/2NS 1000ml IV ONE (15:16)
[2016-07-30 16:00] VITALS: BP 99/68
[2016-07-30 19:00] VITALS: BP 105/71
--- NOTE | 2016-07-30 22:29 | Pulmonology Progress Note ---
Assessment/Plan Problems: (1) SBO (small bowel obstruction) (2) HIV (human immunodeficiency virus infection) (3) GERD (gastroesophageal reflux disease) (4) Intractable abdominal pain Assessment/Plan s/p endoscopy, showing gastritis, biopsy negative iv fluids check electrolytes pain management Subjective Allergies: Coded Allergies: No Known Allergies (Verified , 08/13/06) Objective Last 24 Hour Vital Signs Date Time Temp Pulse Resp B/P Pulse Ox O2 Delivery O2 Flow Rate FiO2 07/30/16 21:33 105/71 07/30/16 19:00 98.0 70 20 105/71 98 Room Air 07/30/16 16:48 98.0 07/30/16 16:00 97.5 65 20 99/68 96 Room Air 07/30/16 13:51 133/82 07/30/16 12:07 98.0 80 22 125/68 99 Room Air 07/30/16 08:15 97.9 61 22 121/75 97 Room Air 07/30/16 06:05 133/78 07/30/16 04:00 96.8 73 18 133/78 98 Room Air 07/30/16 00:00 97.5 63 18 145/98 99 Room Air Intake and Output 07/29/16 07/30/16 19:00 07:00 Intake Total 1200 ml 1360 ml Output Total 0 ml Balance 1200 ml 1360 ml Intake Oral 360 ml IV Total 1200 ml 1000 ml Estimated Blood Loss 0 ml # Voids 4 # Bowel Movements 1 1 Objective General Appearance: WD/WN, no apparent distress, alert Lines, tubes and drains: peripheral HEENT: normocephalic, atraumatic, anicteric, mucous membranes moist Neck: non-tender, supple Respiratory/Chest: chest wall non-tender, normal breath sounds - with moderate air exchange , Cardiovascular/Chest: normal rate, regular rhythm, no JVD Abdomen: normal bowel sounds, non tender, soft Extremities: no calf tenderness, normal capillary refill Current Medications Medications (Trade) Dose Ordered Sig/Sam Route PRN Reason Start Time Stop Time Status Last Admin Dose Admin Clonidine HCl (Catapres) 0.1 mg EVERY 8 HOURS ORAL 07/26/16 16:00 08/25/16 15:59 07/30/16 21:33 Dextrose/Sodium Chloride (D5 0.45% NS) 1,000 ml @ 100 mls/hr Q10H IV 07/26/16 13:30 08/25/16 13:29 07/30/16 17:51 Heparin Sodium (Porcine) (Heparin 5000 units/ml) 5,000 units EVERY 12 HOURS SUBQ 07/26/16 21:00 08/25/16 20:59 07/30/16 21:34 Hydralazine HCl (Apresoline) 10 mg Q4H PRN IV For High Blood Pressure 07/26/16 23:15 08/25/16 23:14 Morphine Sulfate (Morphine Sulfate) 4 mg Q4H PRN IVP For Pain 07/28/16 16:30 08/04/16 16:29 07/30/16 21:34 Ondansetron HCl (Zofran) 4 mg Q6H PRN IVP Nausea & Vomiting 07/26/16 13:00 08/25/16 12:59 07/26/16 14:35 Patient Own Medication (Patient's Own Med) 1 ea DAILY ORAL 07/30/16 14:00 08/29/16 13:59 07/30/16 13:50 Patient Own Medication (Patient's Own Med) 1 ea DAILY ORAL 07/30/16 14:00 08/29/16 13:59 07/30/16 13:50 Ranitidine HCl (Zantac) 150 mg BEDTIME ORAL 07/26/16 21:00 08/25/16 20:59 07/30/16 21:33 Trimethoprim/ Sulfamethoxazole (Bactrim-DS) 1 ea DAILY ORAL 07/30/16 10:30 08/06/16 10:29 07/30/16 13:50 GEORGIE VICTORIA Jul 30, 2016 22:29
[2016-07-31] VITALS: BP 117/80
[2016-07-31] MEDS: Morphine Sulfate 4mg/ml Inj IVP PRN ×2 (02:50→06:42)
[2016-07-31] MEDS: D5 1/2NS 1,000 ML IV SCH (02:56)
[2016-07-31 04:00] VITALS: BP 115/72
[2016-07-31 08:15] VITALS: BP 128/81
--- NOTE | 2016-07-31 08:28 | Diagnostic Imaging Report ---
Indication: Abdominal distention Technique: Water-soluble contrast was injected through pre-existing nasogastric tube. Images of the stomach were obtained in multiple obliquities. Subsequently, serial overhead films were obtained. Comparison: Tree [employer]er film compared to abdominal radiographs dated 07/27/2016 Findings: [employer]er film demonstrates nasogastric tube coiled in the gastric fundus. There is mild prominence to a few gas-filled small bowel loops which is less striking on the previous plain radiograph. Images after injection of contrast demonstrate grossly normal stomach, evaluation of which is limited given use of single contrast technique with water-soluble contrast. Subsequent images demonstrate rapid transit of contrast proximal small bowel. Proximal small bowel loops are minimally dilated, grossly normal mucosal pattern. At one hour, contrast is seen within the colon, and a 1-1/2 hours, contrast is seen as far distally as the distal sigmoid. Impression: Minimally dilated proximal small bowel loops, but rapid forward transit of contrast indicates absence of small bowel obstruction Images were reviewed in person with Dr. Arnold, and discussed over the phone with Dr. Bailey
[2016-07-31] MEDS: Bactrim DS (160mg/800mg) tab ORAL SCH (09:11)
[2016-07-31] MEDS: Heparin 5000 units/ml inj SUBQ SCH (09:12)
--- NOTE | 2016-07-31 10:14 | General Progress Note ---
Progress Note Progress Note Surgery: patient seen and examined at bedside. doing well. no acute events. tolerating regular diet. good bm's/ no n/v/f/c. hernia okay and reducible. okay to d/c from surgical standpoint. to will follow up with me or any surgeon for elective hernia repair and monitoring of gastric mass. Lance Sánchez Jul 31, 2016 10:14
[2016-07-31] MEDS ORDERED: PERCOCET 10-321 EAC1 PO (10:20)
--- NOTE | 2016-07-31 10:45 | Infectious Diseases Prog Note ---
Assessment/Plan Assessment/Plan ASSESSMENT: 61 y/o male with: // HIV / AIDS, on cART ( [facility]on [facility] ) - CD4 224(14%), VL undetectable per self report // Diarrhea - resolved // Leukocytosis, mild - resolved, afebrile // Partial SBO vs vs ileus vs enteritis - surgery following - CT A/P: moderately distended loops of small bowel. The findings could be due to ileus or enteritis. There is some evidence to suggest a mechanical bowel obstruction in the right lower quadrant as there are several loops of nondistended terminal ileum present. // Stomach lesion r/o malignancy - SP EGD 07/29: diffuse gastritis, small hiatal hernia, distal esophageal ring. Path: pending - CT A/P: low-attenuation mass that appears to be associated with the antrum of the stomach. The mass is exophytic to the stomach. - CEA WNL // MAYELA - Cr 1.1-->1.3-->1.2 // h/o cryptococcal meningitis/cryptococcemia, rickettsia, HBV ( spontaneous clearance ), syphillis SP Rx // Negative: toxoplasma, histoplasma, cryptosporidium // NKDA // Full Code PLAN: - ok to DC off of ABX from ID standpoint - continue cART ( brandon perry ), bactrim, f/u regular HIV provider at discharge - f/u path - stool studies if recurrent diarrhea - monitor CBC, temperatures, [place]-culture if acute change - monitor BMP Subjective Allergies: Coded Allergies: No Known Allergies (Verified , 08/13/06) Subjective remains afebrile. tolerating PO Objective Vital Signs Last 24 Hour Vital Signs Date Time Temp Pulse Resp B/P Pulse Ox O2 Delivery O2 Flow Rate FiO2 07/31/16 08:15 98.2 65 20 128/81 94 Room Air 07/31/16 05:54 115/72 07/31/16 04:00 97.5 61 18 115/72 97 Room Air 07/31/16 00:00 97.0 60 18 117/80 96 Room Air 07/30/16 22:04 98.0 07/30/16 21:33 105/71 07/30/16 19:00 98.0 70 20 105/71 98 Room Air 07/30/16 16:00 97.5 65 20 99/68 96 Room Air 07/30/16 13:51 133/82 07/30/16 12:07 98.0 80 22 125/68 99 Room Air Height (Feet): 5 Height (Inches): 10.00 Weight (Pounds): 170 General Appearance: no acute distress Respiratory/Chest: no respiratory distress Cardiovascular: normal rate, regular rhythm Abdomen: normal bowel sounds, soft, non tender, non distended Current Medications Medications (Trade) Dose Ordered Sig/Sam Route PRN Reason Start Time Stop Time Status Last Admin Dose Admin Clonidine HCl (Catapres) 0.1 mg EVERY 8 HOURS ORAL 07/26/16 16:00 08/25/16 15:59 07/30/16 21:33 Dextrose/Sodium Chloride (D5 0.45% NS) 1,000 ml @ 100 mls/hr Q10H IV 07/26/16 13:30 08/25/16 13:29 07/31/16 02:56 Heparin Sodium (Porcine) (Heparin 5000 units/ml) 5,000 units EVERY 12 HOURS SUBQ 07/26/16 21:00 08/25/16 20:59 07/31/16 09:12 Hydralazine HCl (Apresoline) 10 mg Q4H PRN IV For High Blood Pressure 07/26/16 23:15 08/25/16 23:14 Morphine Sulfate (Morphine Sulfate) 4 mg Q4H PRN IVP For Pain 07/28/16 16:30 08/04/16 16:29 07/31/16 06:42 Ondansetron HCl (Zofran) 4 mg Q6H PRN IVP Nausea & Vomiting 07/26/16 13:00 08/25/16 12:59 07/26/16 14:35 Patient Own Medication (Patient's Own Med) 1 ea DAILY ORAL 07/30/16 14:00 08/29/16 13:59 07/31/16 09:11 Patient Own Medication (Patient's Own Med) 1 ea DAILY ORAL 07/30/16 14:00 08/29/16 13:59 07/31/16 10:28 Ranitidine HCl (Zantac) 150 mg BEDTIME ORAL 07/26/16 21:00 08/25/16 20:59 07/30/16 21:33 Trimethoprim/ Sulfamethoxazole (Bactrim-DS) 1 ea DAILY ORAL 07/30/16 10:30 08/06/16 10:29 07/31/16 09:11 TISHA CURTIS Jul 31, 2016 10:45
[2016-07-31] MEDS ORDERED: CATAPRES0.1 MG ORAL (10:47)
--- NOTE | 2016-07-31 11:49 | General Progress Note ---
Assessment/Plan Problem List: (1) Anemia ICD Codes: D64.9 - Anemia, unspecified SNOMED: 836842411 (2) GERD (gastroesophageal reflux disease) ICD Codes: K21.9 - Gastro-esophageal reflux disease without esophagitis SNOMED: 793104746 (3) HTN (hypertension) ICD Codes: I10 - Essential (primary) hypertension SNOMED: 18107325 (4) HIV (human immunodeficiency virus infection) ICD Codes: Z21 - Asymptomatic human immunodeficiency virus [HIV] infection status SNOMED: 97342197 Assessment/Plan s/p EGD fu labs fu biopsy results pain control tolerated diet Subjective ROS Limited/Unobtainable: Yes Allergies: Coded Allergies: No Known Allergies (Verified , 08/13/06) Subjective no event Objective Last 24 Hour Vital Signs Date Time Temp Pulse Resp B/P Pulse Ox O2 Delivery O2 Flow Rate FiO2 07/31/16 08:15 98.2 65 20 128/81 94 Room Air 07/31/16 05:54 115/72 07/31/16 04:00 97.5 61 18 115/72 97 Room Air 07/31/16 00:00 97.0 60 18 117/80 96 Room Air 07/30/16 22:04 98.0 07/30/16 21:33 105/71 07/30/16 19:00 98.0 70 20 105/71 98 Room Air 07/30/16 16:00 97.5 65 20 99/68 96 Room Air 07/30/16 13:51 133/82 07/30/16 12:07 98.0 80 22 125/68 99 Room Air Intake and Output 07/30/16 07/31/16 19:00 07:00 Intake Total 1160 ml 1810 ml Balance 1160 ml 1810 ml Intake Oral 680 ml 710 ml IV Total 480 ml 1100 ml # Voids 3 12 Height (Feet): 5 Height (Inches): 10.00 Weight (Pounds): 170 General Appearance: alert EENT: normal ENT inspection Neck: supple Cardiovascular: normal rate Respiratory/Chest: lungs clear Abdomen: normal bowel sounds, non tender, soft Extremities: non-tender GABBY MONTES Jul 31, 2016 11:49
[2016-07-31 12:13] VITALS: BP 120/78
[2016-07-31] MEDS ORDERED: D5 1/2NS 1000ml IV ONE (14:12)
--- NOTE | 2016-07-31 23:40 | Pulmonology Progress Note ---
Assessment/Plan Problems: (1) SBO (small bowel obstruction) (2) HIV (human immunodeficiency virus infection) (3) GERD (gastroesophageal reflux disease) (4) Intractable abdominal pain Assessment/Plan s/p endoscopy, showing gastritis, biopsy negative iv fluids check electrolytes pain management Subjective Allergies: Coded Allergies: No Known Allergies (Verified , 08/13/06) Objective Last 24 Hour Vital Signs Date Time Temp Pulse Resp B/P Pulse Ox O2 Delivery O2 Flow Rate FiO2 07/31/16 12:13 98.1 72 21 120/78 97 Room Air 07/31/16 08:15 98.2 65 20 128/81 94 Room Air 07/31/16 05:54 115/72 07/31/16 04:00 97.5 61 18 115/72 97 Room Air 07/31/16 00:00 97.0 60 18 117/80 96 Room Air Intake and Output 07/30/16 07/31/16 19:00 07:00 Intake Total 1160 ml 1810 ml Balance 1160 ml 1810 ml Intake Oral 680 ml 710 ml IV Total 480 ml 1100 ml # Voids 3 12 Objective General Appearance: WD/WN, no apparent distress, alert Lines, tubes and drains: peripheral HEENT: normocephalic, atraumatic, anicteric, mucous membranes moist Neck: non-tender, supple Respiratory/Chest: chest wall non-tender, normal breath sounds - with moderate air exchange , Cardiovascular/Chest: normal rate, regular rhythm, no JVD Abdomen: normal bowel sounds, non tender, soft Extremities: no calf tenderness, normal capillary refill GEORGIE VICTORIA Jul 31, 2016 23:40
--- NOTE | 2016-08-01 15:18 | Discharge Summary ---
Discharge Summary Hospital Course Date of Admission Jul 26, 2016 at 09:15 Date of Discharge Jul 31, 2016 at 14:13 Admitting Diagnosis Intractable abdominal pain HPI Satnam Sapp is a 61 year old male who was admitted on Jul 26, 2016 at 09:15 for Intractable Abdominal Pain Hospital Course [id number] Discharge Discharge Disposition Patient was discharged to Home (01) Discharge Diagnoses: Lucia Mueller NP Aug 01, 2016 15:18
--- NOTE | 2016-08-02 01:48 | Discharge Summary 2 SIG ---
DATE OF ADMISSION: 07/26/2016 DATE OF DISCHARGE: 07/31/2016 CONSULTANTS: 1. John Kyle M.D. 2. Sae Bailey M.D. 3. Pelon Adame M.D. BRIEF HOSPITAL COURSE: The patient is a 61-year-old male, who presented to ED with complaints of diffuse abdominal pain. Initially, was in the umbilical region and moved up into the epigastric. There was nausea and claim to have emesis of bilious material and food. Workup in ED showed mild leukocytosis with no anemia. CT of the abdomen and pelvis with suspicion of partial mechanical small bowel obstruction versus enteritis. Surgical consultation was done. NG-tube was placed and was given IV hydration. Dr. Adame was consulted for evaluation of HIV. Anti-retroviral therapy and Bactrim prophylaxis was resumed. Serial imaging were done. CAT scan showed abnormal mass/protrusion in the stomach. Upper GI small bowel through showed a minimally dilated proximal small bowel loops, with transit of contrast indicating absence of small bowel obstruction. Dr. Kyle was consulted. On 07/29/2016, he underwent EGD with findings of small hiatal hernia, distal esophageal ring and gastritis status post biopsy. Biopsy results showed no H. pylori and no intestinal metaplasia or dysplasia. The patient was offered surgery. Films were reviewed with radiologist. Mass was in the antrum near the pylorus and looks to be a subpleural. The patient was offered surgery with biopsy versus resection of mass versus monitoring with repeat CT scan at a later date and after discussing options including the risks and benefits, the patient expressed that he did not want any surgery at this time or biopsy and would prefer at least invasive method. He has elected to monitor mass with repeat CT scan after discharge. Umbilical hernia was reducible and small and would like to have repair done electively. The patient was tolerating a regular diet with positive flatus and BM. He was cleared for discharge. Advised to follow up as outpatient. FINAL DIAGNOSES: 1. Small bowel obstruction, resolved. 2. Human immunodeficiency virus. 3. Gastroesophageal reflux disease. 4. Gastritis. 5. Gastric mass. 6. Anemia. 7. Hypertension. 8. Acute kidney injury. 9. Diarrhea and leukocytosis possible secondary to enteritis. 10. Status post esophagogastroduodenoscopy. 11. Umbilical hernia. Jasmina Diego M.D. I have been assigned to dictate discharge summary on this account and I was not involved in the patient's management. Lucia Mueller N.P. DR: RADHAMES JOB#: [id number] CC: LAURA
--- NOTE | 2016-08-29 14:52 | Diagnostic Imaging Report ---
Indication: NG tube Comparison: None Single view of the abdomen obtained The NG tube tip is in good position within the stomach. Bowel gas pattern is nonspecific. Bones are osteopenic. There is contrast material within the collecting system. Impression: NG tube in good position
== END 2016-07-31 14:13 | disposition home or self-care (01) | DRG 388 ==
LOC: EDBD 08:12 → EMR 08:56 → 4E 09:15 → EDBEDREQ 10:58
PROC: 0DB68ZX Excision of Stomach, Via Natural or Artificial Opening Endoscopic, Diagnostic (ICD-10-PCS; principal; 2016-07-26)
DX: K56.60 Unspecified intestinal obstruction (principal); B20 Human immunodeficiency virus [HIV] disease; N17.9 Acute kidney failure, unspecified; K21.9 Gastro-esophageal reflux disease without esophagitis; K29.70 Gastritis, unspecified, without bleeding; K31.9 Disease of stomach and duodenum, unspecified; D64.9 Anemia, unspecified; K52.9 Noninfective gastroenteritis and colitis, unspecified; K42.9 Umbilical hernia without obstruction or gangrene; I10 Essential (primary) hypertension
CPT/HCPCS: 36415; 74000; 74020; 74177; 74249; 80048; 80053; 81003; 82378; 83690; 85025; 85610; 85730; 86360; 87081; 90732; 94003; 94150; J2405